=== PATIENT | female | born 1965 | race African-American/Black ===

== ENCOUNTER 2018-02-12 13:31 | Observation (INO) | payer BC ==
--- NOTE | 2018-02-12 13:38 | PDOC ---
History of Present Illness - General Chief Complaint: Chest Pain Stated Complaint: CHEST PAIN Time Seen by Provider: 02/12/18 13:37 History Source: Patient, EMS Exam Limitations: No Limitations - History of Present Illness Initial Comments: 02/12/18 13:54 CHIEF COMPLAINT: Chest pain HISTORY OF PRESENT ILLNESS: This is a 52-year-old female with a history of hypertension (on multiple agents, also with history of preeclampsia and "prediabetes" on metformin referred from urgent care with chest pain. The patient was in her usual state of health this morning. After getting out of the shower today and walking a short distance in her house, she developed sudden onset of left-sided upper back pain radiating to the chest. She reports feeling hot and sweaty at the time of pain onset. She denies nausea, shortness of breath , or any other symptoms. The pain seems to be worse with movement and with breathing, even if not breathing deeply. She took ASA 81 mg 3 and presented to urgent care. There she was given Toradol 60 mg without any relief of symptoms, and thus was referred to the ED for further evaluation. Vital signs on arrival are unremarkable. PCP: Demario orozco at [facility] Smoking: None Alcohol: Occasional Social history: Lives with partner. 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 Travel: [place] 1 month ago (4 hr flight) Surgeries: c/s x 1 REVIEW OF SYSTEMS: GENERAL/CONSTITUTIONAL: No fever or chills. No weakness. No weight change. HEAD, EYES, EARS, NOSE AND THROAT: No change in vision. No ear pain or discharge. No sore throat. CARDIOVASCULAR: See HPI. RESPIRATORY: No cough, wheezing, or shortness of breath. GASTROINTESTINAL: No nausea, vomiting, diarrhea or constipation. GENITOURINARY: No dysuria, frequency, or change in urination. Still menstruating. MUSCULOSKELETAL: No joint or muscle swelling or pain. No neck or back pain. SKIN: No rash or easy bruising. NEUROLOGIC: No headache, vertigo, loss of consciousness, or loss of sensation. PSYCHIATRIC: No depression or anxiety. ENDOCRINE: No increased thirst. No abnormal weight change. HEMATOLOGIC/LYMPHATIC: No anemia, easy bleeding, or history of blood clots. ALLERGIC/IMMUNOLOGIC: No hives or skin allergy. No latex allergy. PHYSICAL EXAM: GENERAL: The patient is awake, alert, and fully oriented, in no acute distress. HEAD: Normal with no signs of trauma. ENT: Pupils equal, round and reactive to light, extraocular movements intact, sclera anicteric, conjunctiva clear. Neck supple. LUNGS: Clear to auscultation bilaterally. Normal excursion. No respiratory distress or use of accessory muscles. Pain reproducible with twisting movement of upper torso and with deep breathing. CV: RRR, S1/S2, no MRG. Cap refill < 2 sec. ABDOMEN: Soft, non-distended, non-tender. EXTREMITIES: Normal range of motion. 1+ pitting LLE edema, patient states is chronic, trace RLE edema. NEUROLOGICAL: Normal speech, normal gait. CN II-XII grossly intact. PSYCH: Normal mood, normal affect. SKIN: Warm, dry, normal turgor, no rashes or lesions noted. 02/12/18 13:56 Past History - Past Medical History Allergies/Adverse Reactions: Allergies Allergy/AdvReac Type Severity Reaction Status Date / Time No Known Allergies Allergy Verified 02/12/18 13:42 Home Medications: Ambulatory Orders Diltiazem Cd [Cardizem Cd -] 300 mg PO DAILY 02/12/18 Losartan Potassium 100 mg PO DAILY 02/12/18 Spironolactone 25 mg PO DAILY 02/12/18 metFORMIN XR [Glucophage *Xr* -] 500 mg PO DAILY 02/12/18 Heart Score/ECG Review - History History: Moderately suspicious - Electrocardiogram EKG: Normal - Age Age: 45-65 - Risk Factors Risk Factors Heart Score: Yes Hx Hypertension, Yes Hx Diabetes, Yes Hx Obesity Based on the list above the patient has:: >/=3 risk factors or Hx atherosclerotic disease - Troponin Troponin: </= normal limit - Score Heart Score - Total: 4 ED Treatment Course - LABORATORY CBC & Chemistry Diagram: 02/12/18 13:39 02/12/18 13:39 Medical Decision Making - Medical Decision Making 02/12/18 13:59 A/P: 52-year-old female with hypertension and pre-diabetes presenting with sudden onset of upper back pain radiating to the chest. Pain is pleuritic in nature. 1. EKG: Normal sinus rhythm with T-wave inversions in lead III only, not present on prior EKG provided by PCP 2. Labs including CBC, CMP, PT/INR, troponin, d-dimer (patient is low-risk by Well's criteria) 3. Chest x-ray 4. Patient declines analgesia at this time, took ASA at home 02/12/18 15:11 CXR: Prominent heart and dann Trop neg D-dimer within normal limits Patient continues to have 8/10 pain Will CTA r/o dissection 02/12/18 17:49 CTA reviewed. The lower half of the aorta is partially obscured due to vascular pulsaiton artifact. No obvious dissection is seen at that level. The thoracic aorta is well-visualized and there is no dissection at that level. There are several curvilinear bands over the left atrium, which are likely artifactual in nature, less likely thrombus. Correlation with echocardiography as recommended. Patient reevaluated and pain is unchanged. Still 8/10. She again declines analgesia. We'll request observation to complete rule out AK. *DC/Admit/Observation/Transfer Diagnosis at time of Disposition: Chest pain Qualifiers: Chest pain type: unspecified Qualified Code(s): R07.9 - Chest pain, unspecified - Discharge Dispostion Condition at time of disposition: Guarded Decision to Admit order: Yes - Referrals Referrals: Marcie Castano MD [Primary Care Provider] - - Patient Instructions - Post Discharge Activity
[2018-02-12 13:39] VITALS: BMI 30.9
[2018-02-12 14:11] LABS: BASO % 2.3 % (0-2.0); EOS % 1.4 % (0-4.5); HEMATOCRIT 37.1 % (32.4-45.2); HEMOGLOBIN 12.7 GM/dL (10.7-15.3); LYMPH % 48.8 % (8-40); MCH 31.2 pg (25.7-33.7); MCHC 34.1 g/dl (32.0-36.0); MEAN CELL VOLUME 91.4 fl (80-96); MEAN PLT VOLUME 8.3 fl (7.5-11.1); MONO % 8.3 % (3.8-10.2); NEUT % 39.2 % (42.8-82.8); PLATELET COUNT 282 K/MM3 (134-434); RBC 4.06 M/mm3 (3.60-5.2); WHITE BLOOD COUNT 3.7 K/mm3 (4.0-10.0)
[2018-02-12 14:26] LABS: INR 1.15 (0.83-1.09)
[2018-02-12 14:51] LABS: ALBUMIN 4.3 g/dl (3.4-5.0); ALK PHOS 66 U/L (45-117); ANION GAP 7 MMOL/L (8-16); BILIRUBIN,TOTAL 0.4 mg/dL (0.2-1.0); BLOOD UREA NITROGEN 11 mg/dL (7-18); CALCIUM 9.3 mg/dL (8.5-10.1); CHLORIDE 108 mmol/L (98-107); CO2 25 mmol/L (21-32); CREATININE 0.9 mg/dL (0.55-1.3); GLUCOSE,RANDOM 109 mg/dL (74-106); POTASSIUM 4.2 mmol/L (3.5-5.1); SGOT/AST 16 U/L (15-37); SGPT/ALT 22 U/L (13-61); SODIUM 140 mmol/L (136-145)
[2018-02-12] MEDS ORDERED: ACETAMINOPHEN 325 MG TABLET (FP) PO PRN (18:59)
[2018-02-12] MEDS ORDERED: CYCLOBENZAPRINE HCL 5 MG TABLET PO PRN (19:05)
--- NOTE | 2018-02-12 19:09 | PN ---
Teaching Attending Note Name of Resident: Doron Ambrosio ATTENDING PHYSICIAN STATEMENT I saw and evaluated the patient. I reviewed the resident's note and discussed the case with the resident. I agree with the resident's findings and plan as documented with exceptions below. SUBJECTIVE: 52 yof with PMHx of HTN, PRe DM on metformin, Osteoarthritis was in her USOH till this AM, when after coming out of shower had sudden onset of left upper back pain, sharp radiating to the left arm and left upper chest, worse with left arm movements, especially elevation and deep breaths. Denies any arm or jaw pain, dypsnea, diaphoresis, fevers, chills, cough, or other concerns. Fairly active with no c/o exertional chest pain, dyspnea or anginal equivalent symptoms. Currently with intermittent pain with left arm elevation and deep breaths but comfortable. No twisting, pulling, neck pain. Prior h/o right low back pain when was told was related to sciatica 12 point ROS neg otherwise. OBJECTIVE: Vital Signs Period Temp Pulse Resp BP Sys/[place] Pulse Ox Last 24 Hr 98.0 F 74-75 20-20 142-142/84-94 97-99 Intake & Output 02/09/18 02/10/18 02/11/18 02/12/18 23:59 23:59 23:59 23:59 Weight 180 lb GENERAL: Awake, alert, and fully oriented, in no acute distress. HEAD: Normal with no signs of trauma. EYES: Pupils equal, round and reactive to light, extraocular movements intact, sclera anicteric, conjunctiva clear. No lid lag. EARS, NOSE, THROAT: Ears normal, nares patent, oropharynx clear without exudates. Moist mucous membranes. NECK: Normal range of motion, supple without lymphadenopathy, JVD, or masses. LUNGS: Breath sounds equal, clear to auscultation bilaterally. No wheezes, and no crackles. No accessory muscle use. HEART: S1S2 regular rate rhythm ABDOMEN: Soft, nontender, not distended, normoactive bowel sounds, no guarding, no rebound, no masses. MUSCULOSKELETAL: Normal range of motion at all joints. No bony deformities or tenderness. No CVA tenderness. Pain left scapular left arm and left upper chest wall area with left shoulder elevation above 90 degrees, no point tenderness over left shoulder region, no spinal tenderness, UPPER EXTREMITIES: 2+ pulses, warm, well-perfused. No cyanosis. No clubbing. No peripheral edema. LOWER EXTREMITIES: 2+ pulses, warm, well-perfused. No calf tenderness. No peripheral edema. NEUROLOGICAL: Cranial nerves II-XII intact. Normal speech. Normal gait. Power 5 /5, sensation intact and symmetric to touch bilaterally, PERRL, EOMI, facial symmetry, no pronator drift, toes down going, DTR Bilaterally symmetric PSYCHIATRIC: Cooperative. Good eye contact. Appropriate mood and affect. SKIN: Warm, dry, normal turgor, no rashes or lesions noted, normal capillary refill. Home Medications Medication Instructions Recorded Diltiazem Cd [Cardizem Cd -] 300 mg PO DAILY 02/12/18 Losartan Potassium 100 mg PO DAILY 02/12/18 Spironolactone 25 mg PO DAILY 02/12/18 metFORMIN XR [Glucophage *Xr* -] 500 mg PO DAILY 02/12/18 Active Medications Acetaminophen (Tylenol -) 650 mg PO Q4H PRN PRN Reason: PAIN LEVEL 6-10 Diltiazem HCl (Cardizem Cd -) 300 mg PO DAILY MATTHEW Insulin Aspart (Novolog Vial Sliding Scale -) 0 vial SQ ACHS MATTHEW; Protocol Losartan Potassium (Cozaar -) 100 mg PO DAILY MATTHEW Spironolactone (Aldactone -) 25 mg PO DAILY [facility] Laboratory Results - last 24 hr 02/12/18 02/12/18 02/12/18 13:39 13:39 14:00 WBC 3.7 L RBC 4.06 Hgb 12.7 Hct 37.1 MCV 91.4 MCH 31.2 MCHC 34.1 RDW 13.0 Plt Count 282 MPV 8.3 Absolute Neuts (auto) 1.5 Neutrophils % 39.2 L Lymphocytes % 48.8 H Monocytes % 8.3 Eosinophils % 1.4 Basophils % 2.3 H Nucleated RBC % 0 PT with INR 13.00 INR 1.15 H D-Dimer Sodium 140 Potassium 4.2 Chloride 108 H Carbon Dioxide 25 Anion Gap 7 L BUN 11 Creatinine 0.9 Creat Clearance w eGFR > 60 Random Glucose 109 H Calcium 9.3 Total Bilirubin 0.4 AST 16 ALT 22 Alkaline Phosphatase 66 Troponin I < 0.02 Total Protein 8.0 Albumin 4.3 Serum , Qual 02/12/18 02/12/18 14:00 15:08 WBC RBC Hgb Hct MCV MCH MCHC RDW Plt Count MPV Absolute Neuts (auto) Neutrophils % Lymphocytes % Monocytes % Eosinophils % Basophils % Nucleated RBC % PT with INR INR D-Dimer 429 Sodium Potassium Chloride Carbon Dioxide Anion Gap BUN Creatinine Creat Clearance w eGFR Random Glucose Calcium Total Bilirubin AST ALT Alkaline Phosphatase Troponin I Total Protein Albumin Serum , Qual Negative CTA results reviewed CXR results reviewed EKG NSR, T inversions in anterior leads and II, QS in V1V2 ASSESSMENT AND PLAN: 52 yof with left upper back/left chest wall pain radiating to left arm sharp -Left upper back/left chest wall pain radiating to left arm sharp sudden onset, musculoskeletal vs costochondritis vs C spine radiculopathy high on differential , r/o ACS though low suspicion, CTA chest neg for dissection -Abnormal area above left atrium ?artefact, r/o thrombus, clinically low suspicion -HTN -Pre-diabetes Plan: C-spine xray. Trial with low dose neurontin. flexeril prn. Tylenol prn. CHeck Mg/Phos. Monitor for new concerns. Check 2D echo Cardiology consult given EKG changes though non specific and pain currently exacerbated by movements and deep breaths that argues against ACS. CHeck A1c, hold metformin given contrast. ISS< diabetic diet Continue home anti-hypertensives DVTPPX low risk Dispo admit to obs tele d/c in 24 hours if work up unrevealing and no new concerns. Plan discussed with patient in detail, all questions answered. Total admit time 55 min.
--- NOTE | 2018-02-12 19:31 | HP ---
CHIEF COMPLAINT: chest/back pain PCP: n/a HISTORY OF PRESENT ILLNESS: Patient is a 52 yo F with a PMHx of HTN, osteoarthritis, Pre-DM, presented with sudden, 9/10, sharp, constant, Left upper back pain, radiating to the L arm and Left upper chest that started this morning while walking in her house. Pain is worsened with movement, L arm elevation and when taking deep breaths. Patient never experienced this type of pain before. She has never seen a personnel research scientist and has never had an echo. She denies diaphoresis, jaw pain, sob, nausea, vomiting, dizziness, trauma, recent exercising, cough, fevers, chills, recent illness, numbness, tingling, vision changes, edema. ER course was notable for: (1) EKG NSR, T inversions in anterior leads and II, QS in V1V2 (2) 1st trop negative (3) CTA with no definite evidence of dissection, partially obscured. Recent Travel: [place] 1 month ago. PAST MEDICAL HISTORY: per hpi PAST SURGICAL HISTORY: Social History: Smoking: denies Alcohol: occasional Drugs: denies Family History: Allergies No Known Allergies Allergy (Verified 02/12/18 13:42) HOME MEDICATIONS: Home Medications Medication Instructions Recorded Diltiazem Cd [Cardizem Cd -] 300 mg PO DAILY 02/12/18 Losartan Potassium 100 mg PO DAILY 02/12/18 Spironolactone 25 mg PO DAILY 02/12/18 metFORMIN XR [Glucophage *Xr* -] 500 mg PO DAILY 02/12/18 REVIEW OF SYSTEMS CONSTITUTIONAL: Absent: fever, chills, diaphoresis, generalized weakness, malaise, loss of appetite, weight change HEENT: Absent: rhinorrhea, nasal congestion, throat pain, throat swelling, difficulty swallowing, mouth swelling, ear pain, eye pain, visual changes CARDIOVASCULAR: chest pain Absent: syncope, palpitations, irregular heart rate, lightheadedness, peripheral edema RESPIRATORY: Absent: cough, shortness of breath, dyspnea with exertion, orthopnea, wheezing, stridor, hemoptysis GASTROINTESTINAL: Absent: abdominal pain, abdominal distension, nausea, vomiting, diarrhea, constipation, melena, hematochezia GENITOURINARY: Absent: dysuria, frequency, urgency, hesitancy, hematuria, flank pain, genital pain MUSCULOSKELETAL: back pain, neck pain, arthalgia Absent: myalgia NEUROLOGIC: Absent: headache, focal weakness or paresthesias, dizziness, unsteady gait, seizure, mental status changes, bladder or bowel incontinence PSYCHIATRIC: Absent: anxiety, depression PHYSICAL EXAMINATION Vital Signs - 24 hr 02/12/18 02/12/18 02/12/18 13:35 14:10 15:05 Temperature 98.0 F Pulse Rate 75 Pulse Rate [ 74 Radial] Respiratory 20 20 Rate Blood Pressure 142/94 Blood Pressure 142/84 [Left Arm] O2 Sat by Pulse 97 98 99 Oximetry (%) 02/12/18 18:00 Temperature Pulse Rate Pulse Rate [ Radial] Respiratory Rate Blood Pressure Blood Pressure [Left Arm] O2 Sat by Pulse 98 Oximetry (%) GENERAL: Awake, alert, and fully oriented, in no acute distress. HEAD: Normal with no signs of trauma. EYES: Pupils equal, round and reactive to light, extraocular movements intact EARS, NOSE, THROAT: oropharynx clear without exudates. Moist mucous membranes. NECK: Normal range of motion, supple without lymphadenopathy, JVD LUNGS: Breath sounds equal, clear to auscultation bilaterally. HEART: Regular rate and rhythm, normal S1 and S2 without murmur, rub or gallop. Chest: no reproducible pain on palpation. ABDOMEN: Soft, nontender, not distended, normoactive bowel sounds, no guarding, no rebound, no masses. MUSCULOSKELETAL: Normal range of motion at all joints. Pain with active range of motion with L arm. UPPER EXTREMITIES: L scapular pain and chest pain with shoulder elevation. No point tenderness. 2+ pulses, warm, well-perfused LOWER EXTREMITIES: 2+ pulses. No peripheral edema. NEUROLOGICAL: Cranial nerves II-XII intact. Normal speech. Normal gait. PSYCHIATRIC: Cooperative. Good eye contact. Appropriate mood and affect. Laboratory Results - last 24 hr 02/12/18 02/12/18 02/12/18 13:39 13:39 14:00 WBC 3.7 L RBC 4.06 Hgb 12.7 Hct 37.1 MCV 91.4 MCH 31.2 MCHC 34.1 RDW 13.0 Plt Count 282 MPV 8.3 Absolute Neuts (auto) 1.5 Neutrophils % 39.2 L Lymphocytes % 48.8 H Monocytes % 8.3 Eosinophils % 1.4 Basophils % 2.3 H Nucleated RBC % 0 PT with INR 13.00 INR 1.15 H D-Dimer Sodium 140 Potassium 4.2 Chloride 108 H Carbon Dioxide 25 Anion Gap 7 L BUN 11 Creatinine 0.9 Creat Clearance w eGFR > 60 Random Glucose 109 H Calcium 9.3 Total Bilirubin 0.4 AST 16 ALT 22 Alkaline Phosphatase 66 Troponin I < 0.02 Total Protein 8.0 Albumin 4.3 Serum , Qual 02/12/18 02/12/18 14:00 15:08 WBC RBC Hgb Hct MCV MCH MCHC RDW Plt Count MPV Absolute Neuts (auto) Neutrophils % Lymphocytes % Monocytes % Eosinophils % Basophils % Nucleated RBC % PT with INR INR D-Dimer 429 Sodium Potassium Chloride Carbon Dioxide Anion Gap BUN Creatinine Creat Clearance w eGFR Random Glucose Calcium Total Bilirubin AST ALT Alkaline Phosphatase Troponin I Total Protein Albumin Serum , Qual Negative ASSESSMENT/PLAN: Patient is a 52 yo F with a PMHx of HTN, osteoarthritis, presented with L upper back pain, radiating to the L chest and arm. #L Upper back pain/L sided Chest pain. -musculoskeletel vs costochondritis vs c spine radiculopathy -r/o ACS -1st trop neg, fu repeat -FU mag phos -tele -echo -cardiology consult, EKG changes. -EKG NSR, T inversions in anterior leads and II, QS in V1V2 -FU c-spine x ray, start Neurontin. Flexiril prn. -CTA with no definite evidence of dissection, partially obscured. #HTN -cont. home meds -cardizem, losartan, spironolactone #Pre-DM -hga1c -hold metformin -sliding scale #FEN -no fluids -monitor -sodium restricted #dvt ppx -SCDs Dispo: monitor overnight Visit type - Emergency Visit Emergency Visit: Yes Care time: The patient presented to the Emergency Department on the above date and was hospitalized for further evaluation of their emergent condition. - New Patient This patient is new to me today: Yes Date on this admission: 02/12/18 - Critical Care Critical Care patient: No Hospitalist Screening - Colonoscopy Questionnaire Colonoscopy Questionnaire: Colonoscopy Questionnaire - Patient: 50 - 75 years old and never had a screening colonoscopy: Unknown History of colon or rectal polyps, or CA: Unknown History of IBD, Crohn's disease or UC: Unknown History of abdominal radiation therapy as a child: Unknown - Relative: 1 with colon or rectal CA, or polyps at age 60 or younger: Unknown Colon or rectal CA diagnosed at age 45 or younger: Unknown Multiple relatives with colon or rectal CA: Unknown - Outcome: Screening Result: Negative Screen
[2018-02-12 20:57] LABS: MAGNESIUM 2.3 mg/dL (1.8-2.4); PHOSPHOROUS 3.1 mg/dL (2.5-4.9)
[2018-02-12 20:58] LABS: CHOLESTEROL 208 mg/dL (50-200); HDL CHOLESTEROL 40 mg/dL (40-60); TRIGLYCERIDES 204 mg/dL (35-160)
[2018-02-12] MEDS ORDERED: GABAPENTIN 100 MG CAPSULE (FP) ONE (21:36)
[2018-02-12] MEDS: GABAPENTIN 100 MG CAPSULE (FP) PO SCH (21:48)
[2018-02-12] MEDS: INSULIN SLIDING SCALE (NOVOLOG) 1 VIAL SQ SCH (21:49)
[2018-02-13] MEDS: INSULIN SLIDING SCALE (NOVOLOG) 1 VIAL SQ SCH ×2 (06:07→12:30)
[2018-02-13] MEDS ORDERED: CYCLOBENZAPRINE HCL 10 MG TABLET (FP) PO PRN (06:25)
[2018-02-13 07:27] LABS: BASO % 2.2 % (0-2.0); EOS % 2.8 % (0-4.5); HEMATOCRIT 34.4 % (32.4-45.2); HEMOGLOBIN 11.8 GM/dL (10.7-15.3); MCHC 34.2 g/dl (32.0-36.0); MEAN CELL VOLUME 90.7 fl (80-96); MEAN PLT VOLUME 8.4 fl (7.5-11.1); MONO % 8.7 % (3.8-10.2); NEUT % 38.3 % (42.8-82.8); PLATELET COUNT 264 K/MM3 (134-434); RDW 13.1 % (11.6-15.6); WHITE BLOOD COUNT 4.1 K/mm3 (4.0-10.0)
[2018-02-13 07:52] LABS: INR 1.15 (0.83-1.09)
[2018-02-13 08:05] LABS: CALCIUM 8.7 mg/dL (8.5-10.1); CHLORIDE 106 mmol/L (98-107); POTASSIUM 4.2 mmol/L (3.5-5.1); SODIUM 139 mmol/L (136-145)
[2018-02-13 08:09] LABS: ALBUMIN 3.8 g/dl (3.4-5.0); ALK PHOS 62 U/L (45-117); ANION GAP 7 MMOL/L (8-16); BILIRUBIN,TOTAL 0.5 mg/dL (0.2-1.0); BLOOD UREA NITROGEN 17 mg/dL (7-18); CO2 26 mmol/L (21-32); GLUCOSE,RANDOM 106 mg/dL (74-106); SGOT/AST 17 U/L (15-37); SGPT/ALT 20 U/L (13-61); TOT PROT 7.2 g/dl (6.4-8.2)
--- NOTE | 2018-02-13 09:12 | EKG ---
Test Reason : Blood Pressure : / mmHG Vent. Rate : 069 BPM Atrial Rate : 069 BPM P-R Int : 182 ms QRS Dur : 090 ms QT Int : 354 ms P-R-T Axes : 052 001 006 degrees QTc Int : 379 ms NORMAL SINUS RHYTHM NONSPECIFIC T WAVE ABNORMALITY ABNORMAL ECG WHEN COMPARED WITH ECG OF 12-FEB-2018 20:44, NO SIGNIFICANT CHANGE WAS FOUND Confirmed by JOHN JOHNSON MD ([id number]) on 02/13/2018 9:11:54 AM Referred By: Confirmed By:JOHN JOHNSON MD
--- NOTE | 2018-02-13 09:33 | EKG ---
Test Reason : Blood Pressure : / mmHG Vent. Rate : 074 BPM Atrial Rate : 074 BPM P-R Int : 180 ms QRS Dur : 086 ms QT Int : 344 ms P-R-T Axes : 048 -16 003 degrees QTc Int : 381 ms NORMAL SINUS RHYTHM WITH SINUS ARRHYTHMIA MODERATE VOLTAGE CRITERIA FOR LVH, MAY BE NORMAL VARIANT POOR R WAVE PROGRESSION NONSPECIFIC T WAVE ABNORMALITY ABNORMAL ECG NO PREVIOUS ECGS AVAILABLE Confirmed by ELIZABETH KATZ, JOHN ([id number]) on 02/13/2018 9:32:51 AM Referred By: Confirmed By:JOHN JOHNSON MD
[2018-02-13] MEDS ORDERED: PT OWN MED DRAWER 7, Y5N ONE (09:34)
[2018-02-13] MEDS ORDERED: SPIRONOLACTONE 25 MG TABLET (FP) PO SCH (10:00)
[2018-02-13] MEDS: LOSARTAN POTASSIUM 50 MG TABLET (FP) PO SCH ×2 (10:36→10:49)
[2018-02-13] MEDS: GABAPENTIN 100 MG CAPSULE (FP) PO SCH (10:36)
--- NOTE | 2018-02-13 10:50 | ECHO ---
Name: GUY TORRES Exam:Adult Echocardiogram Study Date: 02/13/2018 08:39 AM Age: 52 yrs Reason For Study: chest pain r/o?thrombi,on CTA Height: 64 in Weight: 180 lb BSA: 1.9 m2 MMode/2D Measurements & Calculations RVDd: 2.9 cm Ao root diam: 3.4 cm IVSd: 0.65 cm LA dimension: 3.5 cm LVIDd: 5.0 cm ACS: 1.8 cm LVIDs: 2.8 cm LVPWd: 0.69 cm IVSs: 1.2 cm LVPWs: 1.1 cm EDV(Teich): 115.7 ml ESV(Teich): 29.7 ml Doppler Measurements & Calculations MV E max [place]: 78.5 cm/sec Ao V2 max: 138.5 cm/sec MV A max [place]: 75.9 cm/sec Ao max P.7 mmHg MV E/A: 1.0 Ao V2 mean: 90.2 cm/sec Ao mean P.9 mmHg Ao V2 VTI: 24.5 cm TR max [place]: 170.5 cm/sec Med Peak E' [place]: 6.0 cm/sec TR max P.7 mmHg Med E/e': 13.0 Lat Peak E' [place]: 4.8 cm/sec Lat E/e': 16.3 Left Ventricle Ejection Fraction = 50-55%. Left ventricular systolic function is normal. Right Ventricle The right ventricle is normal in size and function. Atria Normal left and right atrial size and function. Mitral Valve There is mild mitral valve thickening. There is no mitral valve stenosis. There is trace to mild mitr al regurgitation. Tricuspid Valve The tricuspid valve is normal in structure and function. There is mild tricuspid regurgitation. Right ventricular systolic pressure is normal. Aortic Valve The aortic valve opens well. No hemodynamically significant valvular aortic stenosis. No aortic regur gitation is present. Pulmonic Valve The pulmonic valve is not well seen, but is grossly normal. There is no pulmonic valvular stenosis. T here is no pulmonic valvular regurgitation. Great Vessels The aortic root is normal size. Pericardium/Pleura There is no pericardial effusion. Interpretation Summary Ejection Fraction = 50-55%. Left ventricular systolic function is normal. The right ventricle is normal in size and function. There is mild mitral valve thickening. There is trace to mild mitral regurgitation. There is mild tricuspid regurgitation. Right ventricular systolic pressure is normal. No hemodynamically significant valvular aortic stenosis. The aortic root is normal size. There is no pericardial effusion. MD Edson La 02/13/2018 10:50 AM
--- NOTE | 2018-02-13 11:13 | CON.CARD ---
Cardiology Consult (text) - Consultation Consultation Note: cc: back pain, chest pain hpi: 52 f hx htn, hld, borderline dm here with back pain, chest pain. Feeling well until yesterday when was at rest and noticed sharp "popping" pain in left upper back that radiated around her side to her left chest, left shoulder. No sob, palps, dizzy loc pnd orthopnea le edema. No anginal sxs. No hx hrt dz. Back pain worse with deep breaths. Improved today. pmh: per hpi psh: social: no tob fam: no premature cad, scd ros: per hpi; no nvd cough bess vision changes gib hematuria dysuria fever meds: Home Medications Medication Instructions Recorded Diltiazem Cd [Cardizem Cd -] 300 mg PO DAILY 02/12/18 Losartan Potassium 100 mg PO DAILY 02/12/18 Spironolactone 25 mg PO DAILY 02/12/18 metFORMIN XR [Glucophage *Xr* -] 500 mg PO DAILY 02/12/18 pe: Vital Signs Period Temp Pulse Resp BP Sys/[place] Pulse Ox Last 24 Hr 98 F-98.5 F 63-75 18-20 123-142/72-94 96-99 nad no jvd rrr s1 s2 no mrg cta bl nl eff aao3 no le e/c/c abd nt nd posbs laya jaundice diaphoresis pos dp pt no carotid bruits Laboratory Last Values WBC 4.1 K/mm3 (4.0-10.0) 02/13/18 06:33 RBC 3.80 M/mm3 (3.60-5.2) 02/13/18 06:33 Hgb 11.8 GM/dL (10.7-15.3) 02/13/18 06:33 Hct 34.4 % (32.4-45.2) 02/13/18 06:33 MCV 90.7 fl (80-96) 02/13/18 06:33 MCH 31.0 pg (25.7-33.7) 02/13/18 06:33 MCHC 34.2 g/dl (32.0-36.0) 02/13/18 06:33 RDW 13.1 % (11.6-15.6) 02/13/18 06:33 Plt Count 264 K/MM3 (134-434) 02/13/18 06:33 MPV 8.4 fl (7.5-11.1) 02/13/18 06:33 Absolute Neuts (auto) 1.5 K/mm3 (1.5-8.0) 02/13/18 06:33 Neutrophils % 38.3 % (42.8-82.8) L 02/13/18 06:33 Lymphocytes % 48.0 % (8-40) H 02/13/18 06:33 Monocytes % 8.7 % (3.8-10.2) 02/13/18 06:33 Eosinophils % 2.8 % (0-4.5) D 02/13/18 06:33 Basophils % 2.2 % (0-2.0) H 02/13/18 06:33 Nucleated RBC % 0 % (0-0) 02/13/18 06:33 PT with INR 13.00 SEC (9.7-13.0) 02/13/18 06:33 INR 1.15 (0.83-1.09) H 02/13/18 06:33 D-Dimer 429 ng/ml (0-500) 02/12/18 14:00 Sodium 139 mmol/L (136-145) 02/13/18 06:33 Potassium 4.2 mmol/L (3.5-5.1) 02/13/18 06:33 Chloride 106 mmol/L (98-107) 02/13/18 06:33 Carbon Dioxide 26 mmol/L (21-32) 02/13/18 06:33 Anion Gap 7 MMOL/L (8-16) L 02/13/18 06:33 BUN 17 mg/dL (7-18) 02/13/18 06:33 Creatinine 1.0 mg/dL (0.55-1.3) 02/13/18 06:33 Creat Clearance w eGFR 58.22 (>60) 02/13/18 06:33 POC Glucometer 106 UNITS (80-120) 02/13/18 06:04 Random Glucose 106 mg/dL (74-106) 02/13/18 06:33 Hemoglobin A1c % 6.0 % (4.2-6.3) 02/12/18 20:13 Calcium 8.7 mg/dL (8.5-10.1) 02/13/18 06:33 Phosphorus 3.1 mg/dL (2.5-4.9) 02/12/18 20:13 Magnesium 2.3 mg/dL (1.8-2.4) 02/12/18 20:13 Total Bilirubin 0.5 mg/dL (0.2-1.0) 02/13/18 06:33 AST 17 U/L (15-37) 02/13/18 06:33 ALT 20 U/L (13-61) 02/13/18 06:33 Alkaline Phosphatase 62 U/L (45-117) 02/13/18 06:33 Troponin I < 0.02 ng/ml (0.00-0.05) 02/12/18 20:13 Total Protein 7.2 g/dl (6.4-8.2) 02/13/18 06:33 Albumin 3.8 g/dl (3.4-5.0) 02/13/18 06:33 Triglycerides 204 mg/dL (35-160) H 02/12/18 20:13 Cholesterol 208 mg/dL (50-200) H 02/12/18 20:13 Total LDL Cholesterol 152 mg/dL (5-100) H 02/12/18 20:13 HDL Cholesterol 40 mg/dL (40-60) 02/12/18 20:13 Serum , Qual Negative 02/12/18 15:08 tele: sr ecg: sr, nl intervals, no ischemic changes echo 01/2018: nl lv/rv, nl rvsp, mild tr cta chest: no dissection, no chf a/p: 52 f hx htn, hld, borderline dm here with back pain, chest pain. cp, back pain: -seems msk, not cardiac -ce's negative, ecg, tele, echo unremarkable -sxs improving -no further inpt cardiac testing needed at this time, pt can f/u with cardio as outpt htn: -cont home meds hld: -cont statin
[2018-02-13 13:57] VITALS: BP 127/76; PULSE 76; TEMP 98.4
--- NOTE | 2018-02-13 13:58 | PN ---
Teaching Attending Note Name of Resident: Masha Garcia ATTENDING PHYSICIAN STATEMENT I saw and evaluated the patient. I reviewed the resident's note and discussed the case with the resident. I agree with the resident's findings and plan as documented with exceptions below SUBJECTIVE: Patient seen and examined, left upper back symptoms markedly improved. Able to move arm better. Eager to go home. OBJECTIVE: Vital Signs Period Temp Pulse Resp BP Sys/[place] Pulse Ox Last 24 Hr 98 F-98.5 F 63-75 18-20 123-142/72-90 96-99 Intake & Output 02/10/18 02/11/18 02/12/18 02/13/18 23:59 23:59 23:59 23:59 Weight 180 lb 180 lb General: sitting in wheelchair in no acute distress Musculoskeletal: no spinal tenderness, no tenderness over left scapular/chest wall area, ROM at left arm markedly improved, able to elevate above 90 degrees with no pain or limitation Chest: CTAB, no rales or wheezing Extremities: no edema, pulses present bilaterally Home Medications Medication Instructions Recorded Diltiazem Cd [Cardizem Cd -] 300 mg PO DAILY 02/12/18 Losartan Potassium 100 mg PO DAILY 02/12/18 Spironolactone 25 mg PO DAILY 02/12/18 metFORMIN XR [Glucophage *Xr* -] 500 mg PO DAILY 02/12/18 Active Medications Acetaminophen (Tylenol -) 650 mg PO Q4H PRN PRN Reason: PAIN LEVEL 6-10 Atorvastatin Calcium (Lipitor -) 20 mg PO [facility] Cyclobenzaprine HCl (Flexeril -) 5 mg PO BID PRN PRN Reason: BACK PAIN Diltiazem HCl (Cardizem Cd -) 300 mg PO DAILY [facility] Last Admin: 02/13/18 13:20 Dose: 300 mg Gabapentin (Neurontin -) 100 mg PO BID [facility] Last Admin: 02/13/18 10:36 Dose: 100 mg Insulin Aspart (Novolog Vial Sliding Scale -) 1 vial SQ [facility]; Protocol Last Admin: 02/13/18 12:30 Dose: Not Given Losartan Potassium (Cozaar -) 100 mg PO DAILY [facility] Last Admin: 02/13/18 10:49 Dose: Not Given Spironolactone (Aldactone -) 25 mg PO DAILY [facility] Last Admin: 02/13/18 10:36 Dose: 25 mg Laboratory Results - last 24 hr 02/12/18 02/12/18 02/12/18 13:39 13:39 14:00 WBC 3.7 L RBC 4.06 Hgb 12.7 Hct 37.1 MCV 91.4 MCH 31.2 MCHC 34.1 RDW 13.0 Plt Count 282 MPV 8.3 Absolute Neuts (auto) 1.5 Neutrophils % 39.2 L Lymphocytes % 48.8 H Monocytes % 8.3 Eosinophils % 1.4 Basophils % 2.3 H Nucleated RBC % 0 PT with INR 13.00 INR 1.15 H D-Dimer Sodium 140 Potassium 4.2 Chloride 108 H Carbon Dioxide 25 Anion Gap 7 L BUN 11 Creatinine 0.9 Creat Clearance w eGFR > 60 POC Glucometer Random Glucose 109 H Hemoglobin A1c % Calcium 9.3 Phosphorus Magnesium Total Bilirubin 0.4 AST 16 ALT 22 Alkaline Phosphatase 66 Troponin I < 0.02 Total Protein 8.0 Albumin 4.3 Triglycerides Cholesterol Total LDL Cholesterol HDL Cholesterol Serum , Qual 02/12/18 02/12/18 02/12/18 14:00 15:08 20:13 WBC RBC Hgb Hct MCV MCH MCHC RDW Plt Count MPV Absolute Neuts (auto) Neutrophils % Lymphocytes % Monocytes % Eosinophils % Basophils % Nucleated RBC % PT with INR INR D-Dimer 429 Sodium Potassium Chloride Carbon Dioxide Anion Gap BUN Creatinine Creat Clearance w eGFR POC Glucometer Random Glucose Hemoglobin A1c % Calcium Phosphorus Magnesium Total Bilirubin AST ALT Alkaline Phosphatase Troponin I < 0.02 Total Protein Albumin Triglycerides Cholesterol Total LDL Cholesterol HDL Cholesterol Serum , Qual Negative 02/12/18 02/12/18 02/12/18 20:13 20:13 20:13 WBC RBC Hgb Hct MCV MCH MCHC RDW Plt Count MPV Absolute Neuts (auto) Neutrophils % Lymphocytes % Monocytes % Eosinophils % Basophils % Nucleated RBC % PT with INR INR D-Dimer Sodium Potassium Chloride Carbon Dioxide Anion Gap BUN Creatinine Creat Clearance w eGFR POC Glucometer Random Glucose Hemoglobin A1c % 6.0 Calcium Phosphorus 3.1 Magnesium 2.3 Total Bilirubin AST ALT Alkaline Phosphatase Troponin I Total Protein Albumin Triglycerides 204 H Cholesterol 208 H Total LDL Cholesterol 152 H HDL Cholesterol 40 Serum , Qual 02/12/18 02/13/18 02/13/18 21:42 06:04 06:33 WBC 4.1 RBC 3.80 Hgb 11.8 Hct 34.4 MCV 90.7 MCH 31.0 MCHC 34.2 RDW 13.1 Plt Count 264 MPV 8.4 Absolute Neuts (auto) 1.5 Neutrophils % 38.3 L Lymphocytes % 48.0 H Monocytes % 8.7 Eosinophils % 2.8 D Basophils % 2.2 H Nucleated RBC % 0 PT with INR INR D-Dimer Sodium Potassium Chloride Carbon Dioxide Anion Gap BUN Creatinine Creat Clearance w eGFR POC Glucometer 145.58711 106 Random Glucose Hemoglobin A1c % Calcium Phosphorus Magnesium Total Bilirubin AST ALT Alkaline Phosphatase Troponin I Total Protein Albumin Triglycerides Cholesterol Total LDL Cholesterol HDL Cholesterol Serum , Qual 02/13/18 02/13/18 02/13/18 06:33 06:33 12:28 WBC RBC Hgb Hct MCV MCH MCHC RDW Plt Count MPV Absolute Neuts (auto) Neutrophils % Lymphocytes % Monocytes % Eosinophils % Basophils % Nucleated RBC % PT with INR 13.00 INR 1.15 H D-Dimer Sodium 139 Potassium 4.2 Chloride 106 Carbon Dioxide 26 Anion Gap 7 L BUN 17 Creatinine 1.0 Creat Clearance w eGFR 58.22 POC Glucometer 138 Random Glucose 106 Hemoglobin A1c % Calcium 8.7 Phosphorus Magnesium Total Bilirubin 0.5 AST 17 ALT 20 Alkaline Phosphatase 62 Troponin I Total Protein 7.2 Albumin 3.8 Triglycerides Cholesterol Total LDL Cholesterol HDL Cholesterol Serum , Qual 2D echo results noted C-spine xray results noted - degenerative disease ASSESSMENT AND PLAN: 52 yof with left upper back/left chest wall pain radiating to left arm sharp -Left upper back/left chest wall pain radiating to left arm sharp sudden onset, likely Cervical radiculopathy -Abnormal area above left atrium likely artefact, normal 2D echo -Non specific T changes on EKG, unchanged -HTN -Pre-diabetes Plan: C-spine xray noted. Markedly improved. Continue neurontin. Outpatient orthopedic spine follow up if recurrence or concerns. 2D echo non concerning Cardiolgy input appreciated. A1c 6. Hold metformin for 48 hours. Continue home anti-hypertensives DVTPPX low risk Dispo d/c home with outpatient PCP and ortho spine follow up. Plan discussed with patient in detail, all questions answered. Patient relays understanding and in agreement with the plan.
--- NOTE | 2018-02-13 15:12 | DS ---
Physical Exam: SUBJECTIVE: Patient seen and examined at bedside this morning. She reports improvement of her pain and could move her arms more now. OBJECTIVE: Vital Signs Period Temp Pulse Resp BP Sys/[place] Pulse Ox Last 24 Hr 98 F-98.5 F 63-76 18-20 123-135/72-90 96-98 PHYSICAL EXAM GENERAL: The patient is awake, alert, and fully oriented, in no acute distress. HEAD: Normal with no signs of trauma. EYES: PERRLA, extraocular movements intact, sclera anicteric, conjunctiva clear. ENT: Ears normal, nares patent, oropharynx clear without exudates, moist mucous membranes. NECK: Trachea midline, full range of motion, supple. LUNGS: Breath sounds equal, clear to auscultation bilaterally. HEART: Regular rate and rhythm, S1, S2 without murmur, rub or gallop. CHEST: No tenderness on palpation. ABDOMEN: Soft, nontender, nondistended, normoactive bowel sounds. NEUROLOGICAL: Cranial nerves II through XII grossly intact. Normal speech, gait not observed. PSYCH: Normal mood, normal affect. SKIN: Warm, dry, normal turgor, no rashes or lesions noted. LABS Laboratory Results - last 24 hr 02/12/18 02/12/18 02/12/18 15:08 20:13 20:13 WBC RBC Hgb Hct MCV MCH MCHC RDW Plt Count MPV Absolute Neuts (auto) Neutrophils % Lymphocytes % Monocytes % Eosinophils % Basophils % Nucleated RBC % PT with INR INR Sodium Potassium Chloride Carbon Dioxide Anion Gap BUN Creatinine Creat Clearance w eGFR POC Glucometer Random Glucose Hemoglobin A1c % Calcium Phosphorus 3.1 Magnesium 2.3 Total Bilirubin AST ALT Alkaline Phosphatase Troponin I < 0.02 Total Protein Albumin Triglycerides Cholesterol Total LDL Cholesterol HDL Cholesterol Serum , Qual Negative 02/12/18 02/12/18 02/12/18 20:13 20:13 21:42 WBC RBC Hgb Hct MCV MCH MCHC RDW Plt Count MPV Absolute Neuts (auto) Neutrophils % Lymphocytes % Monocytes % Eosinophils % Basophils % Nucleated RBC % PT with INR INR Sodium Potassium Chloride Carbon Dioxide Anion Gap BUN Creatinine Creat Clearance w eGFR POC Glucometer 145.99853 Random Glucose Hemoglobin A1c % 6.0 Calcium Phosphorus Magnesium Total Bilirubin AST ALT Alkaline Phosphatase Troponin I Total Protein Albumin Triglycerides 204 H Cholesterol 208 H Total LDL Cholesterol 152 H HDL Cholesterol 40 Serum , Qual 02/13/18 02/13/18 02/13/18 06:04 06:33 06:33 WBC 4.1 RBC 3.80 Hgb 11.8 Hct 34.4 MCV 90.7 MCH 31.0 MCHC 34.2 RDW 13.1 Plt Count 264 MPV 8.4 Absolute Neuts (auto) 1.5 Neutrophils % 38.3 L Lymphocytes % 48.0 H Monocytes % 8.7 Eosinophils % 2.8 D Basophils % 2.2 H Nucleated RBC % 0 PT with INR 13.00 INR 1.15 H Sodium Potassium Chloride Carbon Dioxide Anion Gap BUN Creatinine Creat Clearance w eGFR POC Glucometer 106 Random Glucose Hemoglobin A1c % Calcium Phosphorus Magnesium Total Bilirubin AST ALT Alkaline Phosphatase Troponin I Total Protein Albumin Triglycerides Cholesterol Total LDL Cholesterol HDL Cholesterol Serum , Qual 02/13/18 02/13/18 06:33 12:28 WBC RBC Hgb Hct MCV MCH MCHC RDW Plt Count MPV Absolute Neuts (auto) Neutrophils % Lymphocytes % Monocytes % Eosinophils % Basophils % Nucleated RBC % PT with INR INR Sodium 139 Potassium 4.2 Chloride 106 Carbon Dioxide 26 Anion Gap 7 L BUN 17 Creatinine 1.0 Creat Clearance w eGFR 58.22 POC Glucometer 138 Random Glucose 106 Hemoglobin A1c % Calcium 8.7 Phosphorus Magnesium Total Bilirubin 0.5 AST 17 ALT 20 Alkaline Phosphatase 62 Troponin I Total Protein 7.2 Albumin 3.8 Triglycerides Cholesterol Total LDL Cholesterol HDL Cholesterol Serum , Qual Imaging: Echo - EF 50-55%. Left ventricular systolic function is normal. The right ventricle is normal in size and function. There is mild mitral valve thickening. There is trace to mild mitral regurgitation. There is mild tricuspid regurgitation. Right ventricular systolic pressure is normal. No hemodynamically significant valvular aortic stenosis. The aortic root is normal size. There is no pericardial effusion. Cervical spine X-ray - Degenerative changes. Loss of lordosis. Chest CTA No definite CT evidence of aortic dissection. The lower half of the ascending aorta is partially obscured due to vascular pulsation artifact. Several curvilinear bands are seen projecting over the left atrium which are probably artefactual in nature, less likely representing thrombus. Mild bibasilar discoid atelectasis. 0.4cm left lower lobe and 0.3cm right lower lobe noncalcified pulmonary nodules. Chest xray Prominent knob and heart. No acute chest pathology. EKG - NSR, T inversions in anterior leads and II, QS in V1V2 HOSPITAL COURSE: Date of Admission:02/12/18 Date of Discharge: 02/13/18 Patient is a 52 yo F with a PMHx of HTN, osteoarthritis, Pre-DM, presented with sudden, 9/10, sharp, constant, Left upper back pain, radiating to the L arm and Left upper chest that started this morning while walking in her house. Pain is worsened with movement, L arm elevation and when taking deep breaths. Patient never experienced this type of pain before. She has never seen a automobile accessories salesperson and has never had an echo. She denies diaphoresis, jaw pain, sob, nausea, vomiting, dizziness, trauma, recent exercising, cough, fevers, chills, recent illness, numbness, tingling, vision changes, aidan Patient was admitted to rule out ACS. Echo, Chest CTA, CXR, and cervical spine X -ray were done. Cardiology consulted. Cardiac enzymes were negative. Patient was given Gabapentin and reported relief of pain. She was also noted to have elevated cholesterol and was started on Atorvastatin 20mg. Patient was discharged stable with instructions to follow with Ortho for her C-spine x-ray findings of degenerative disease and with cardiology for a stress test to be done as outpatient. She was also advised to follow-up with PCP for her chest CT findings of pulmonary nodules as well as further management of her cholesterol. Minutes to complete discharge: 40 Discharge Summary Reason For Visit: CHEST PAIN Current Active Problems Chest pain (Acute) Condition: Improved - Instructions Diet, Activity, Other Instructions: You were admitted because you had sudden severe left upper back and arm pain. You had several tests done to make sure there's nothing emergent that needs to be addressed. You had EKGs, chest CT scan with contrast, 2D-echo, cervical spinal Xray, and some blood tests. You were found to have some degenerative changes on your cervical spine xray, which may have caused your nerves to be impinged and cause the back and arm pain. You were given a new medication, Gabapentin, which you reported caused relief of the pain. You can continue this medication at home. Please note that the medication gabapentin can make you sleepy or dizzy. If you notice these symptoms, please call your doctor to adjust dosage. Advise to avoid driving, operating heavy machinery atleast for a few days while the medication kicks in. IF back symptoms recur or persist, you are advised to follow up with a spine doctor. Please discuss with your doctor in this regard. Can see a neurosurgeon or orthopedic spine for the same. You were also found to have elevated cholesterol on your blood. You were started on a new medication, Atorvastatin 20 mg. You will continue taking this medication at home which you will take once every night because this causes drowsiness. If you notice any new muscle aches or pain, new belly pain, jaundice or new concerns on this medication, please stop the medication and call your doctor. Please follow-up with your primary care doctor in 1 week for further management of the cholesterol. You received dye for your CT study. Please do not take your metformin for 48 hours on discharge, then resume on Friday if with no concerns. In the interim, advise blood sugar monitoring 2-3 times daily and notify your doctor if < 75 or persistently > 200 noted. You were also found with lung nodules and will need follow up CT chest in 3 months with your doctor. Continue your other medications as prescribed. Follow-up with your PCP in 1 week. Call 911 or go to the ED for any worsening chest pain, fevers, chills, shortness of breath or any new concerns noted. Referrals: Marcie Castano MD [Primary Care Provider] - Disposition: HOME - Home Medications Comprehensive Discharge Medication List: Ambulatory Orders Diltiazem Cd [Cardizem Cd -] 300 mg PO DAILY 02/12/18 Losartan Potassium 100 mg PO DAILY 02/12/18 Spironolactone 25 mg PO DAILY 02/12/18 Atorvastatin Ca [Lipitor] 20 mg PO HS #30 tablet 02/13/18 Gabapentin [Neurontin -] 100 mg PO BID #30 capsule 02/13/18 This patient is new to me today: Yes Date on this admission: 02/13/18 Emergency Visit: Yes ED Registration Date: 02/12/18 Care time: The patient presented to the Emergency Department on the above date and was hospitalized for further evaluation of their emergent condition. Critical Care patient: No - Discharge Referral Referred to [facility] Med [facility] No
[2018-02-13] MEDS ORDERED: ATORVASTATIN CA 20 MG TABLET (FP) PO SCH (22:00)
== END 2018-02-13 17:15 | disposition home or self-care (01) ==
LOC: JER 13:31 → JERBED 19:40 → J4W 02-13 00:59
PROVIDERS: ADMIT Hospitalist; ATTEND Hospitalist
DX: I10 Essential (primary) hypertension (principal); R73.03 Prediabetes; M19.90 Unspecified osteoarthritis, unspecified site; Z79.84 Long term (current) use of oral hypoglycemic drugs
CPT/HCPCS: 36415; 71045-TC-FY; 71275-TC; 72050-TC-FY; 80053; 80061; 82962; 83036; 83721; 83735; 84100; 84484; 84703; 85025; 85379; 85610; 93005; 93010; 93306-TC; 99285-25; G0378

== ENCOUNTER 2018-10-02 14:46 | Inpatient (IN) | payer BC ==
--- NOTE | 2018-10-02 15:54 | PDOC ---
History of Present Illness - General History Source: Patient Exam Limitations: No Limitations - History of Present Illness Initial Comments: 10/02/18 15:45 53 y/o female with PMH of HTN and prediabetes presents to the ED with complaints of left leg and arm weakness that started over 24 hours ago. Patient states that at around 3pm yesterday she was at work and felt that her leg felt heavy. She tried to shake it off and it still felt "off". in addition her left arm also felt heavy. She got home from work-took her pressure and it was a tad high (150/83), she had a cup of tea and went to bed. She woke up this morning and still had the same complaints. She denies any changes in speech however still feels that her gait is not normal as she feels like she almost has to drag her foot. This has never happened to her before-. of note, she did recently travel and returned back from [place] on Friday. She denies any chest pains, shortness of breath, nausea/vomiting . she feels that she just doesn't feel "right". She took her pressures this morning and they wee normal (120's over 80s) this morning. Timing/Duration: 24 hours Associated Symptoms: reports: weakness (left lower extremity ). denies: chest pain, nausea/vomiting <Malaika Flores - Last Filed: 10/02/18 18:39> <Demetrice Carlin - Last Filed: 10/02/18 18:53> - General Chief Complaint: Weakness Stated Complaint: LEG PAIN Time Seen by Provider: 10/02/18 15:06 NIH Stroke Scale - Last Known Well Date/Time & Onset Date Last Known Well: 10/01/18 Time Last Known Well: 16:00 - Initial Evaluation Level of consciousness: Alert Ask patient the month and their age: Answers both correctly Ask patient to open & close eyes; make fist and let go: Obeys both correctly Best gaze (horizontal eye movement): Normal Visual field testing: No visual field loss Facial paresis (Show teeth/raise eyebrows/close eyes tight): Normal symmetrical movement Motor Function: Left Arm: Drift Motor Function: Right Arm: Normal (extends arm 90 (or 45) degrees for 10 seconds without drift Motor Function: Left Leg: Normal (extends leg 30 degrees for 5 seconds without drift) Motor Function: Right Leg: Normal (extends leg 30 degrees for 5 seconds without drift) Limb Ataxia: Present in one limb Sensory(Use pinprick test arms,legs,trunk,face/side to side): Normal Best language (Describe picture, name items, read sentences): No Aphasia Dysarthria (read several words): Normal articulation Extinction and Inattention: No abnormality - Total Score NIH Stroke Scale Score: 2 <Malaika Flores - Last Filed: 10/02/18 18:39> Past History - Travel Traveled outside of the country in the last 30 days: No Close contact w/someone who was outside of country & ill: No - Past Medical History COPD: No Diabetes: Yes HTN: Yes - Suicide/Smoking/Psychosocial Hx Smoking History: Former smoker Have you smoked in the past 12 months: No Information on smoking cessation initiated: No Hx Alcohol Use: No Drug/Substance Use Hx: No <Malaika Flores - Last Filed: 10/02/18 18:39> <Demetrice Carlin - Last Filed: 10/02/18 18:53> - Past Medical History Allergies/Adverse Reactions: Allergies Allergy/AdvReac Type Severity Reaction Status Date / Time No Known Allergies Allergy Verified 10/02/18 15:01 Home Medications: Ambulatory Orders Diltiazem Cd [Cardizem Cd -] 300 mg PO DAILY 02/12/18 Losartan Potassium 100 mg PO DAILY 02/12/18 Spironolactone 25 mg PO DAILY 02/12/18 Atorvastatin Ca [Lipitor] 20 mg PO HS #30 tablet 02/13/18 Gabapentin [Neurontin -] 100 mg PO BID #30 capsule 02/13/18 Review of Systems - Review of Systems Able to Perform ROS?: Yes Is the patient limited Mohawk proficient: No Constitutional: No: Fever HEENTM: No: Blurred Vision Respiratory: No: Shortness of Breath Cardiac (ROS): No: Chest Pain : No: Burning, Dysuria Neurological: Yes: Weakness (left upper and lower extremity ) <Malaika Flores - Last Filed: 10/02/18 18:39> *Physical Exam - Vital Signs Last Vital Signs Temp Pulse Resp BP Pulse Ox 98.7 F 91 H 18 165/83 99 10/02/18 15:01 10/02/18 15:01 10/02/18 15:01 10/02/18 15:01 10/02/18 15:01 - Physical Exam General Appearance: Yes: Nourished Neck: positive: Normal Thyroid Respiratory/Chest: positive: Lungs Clear, Normal Breath Sounds Cardiovascular: positive: Regular Rate, S1, S2 Gastrointestinal/Abdominal: positive: Normal Bowel Sounds, Flat, Soft Musculoskeletal: negative: CVA Tenderness Neurologic: positive: Fully Oriented, Alert, Normal Response, Motor Strength 5/ 5 (RUE/RLE: 5/5 LUE 5/5 LLE 3/5). negative: Facial Droop, Sensory Deficit <Malaika Flores - Last Filed: 10/02/18 18:39> - Vital Signs Last Vital Signs Temp Pulse Resp BP Pulse Ox 98.7 F 84 18 165/83 99 10/02/18 15:01 10/02/18 17:07 10/02/18 15:01 10/02/18 15:01 10/02/18 15:01 <Demetrice Carlin - Last Filed: 10/02/18 18:53> ED Treatment Course - LABORATORY CBC & Chemistry Diagram: 10/02/18 15:52 10/02/18 17:13 - RADIOLOGY Radiology Studies Ordered: Category Date Time Status HEAD CT WITHOUT CONTRAST [CT] Stat CT Scan 10/02/18 15:39 Ordered <Malaika Flores - Last Filed: 10/02/18 18:39> - LABORATORY CBC & Chemistry Diagram: 10/02/18 15:52 10/02/18 17:13 - ADDITIONAL ORDERS Additional order review: Laboratory Results 10/02/18 10/02/18 10/02/18 17:13 16:09 16:09 PT with INR Cancelled 13.20 H INR Cancelled 1.12 H PTT (Actin FS) 30.0 Sodium 140 Potassium 3.9 Chloride 106 Carbon Dioxide 25 Anion Gap 9 BUN 10 Creatinine 0.9 Creat Clearance w eGFR 65.50 Random Glucose 94 Calcium 10.0 Total Bilirubin 0.6 AST 15 ALT 20 Alkaline Phosphatase 62 Creatine Kinase 156 Creatine Kinase Index 0.6 CK-MB (CK-2) < 1.0 Troponin I < 0.02 Total Protein 8.1 Albumin 4.6 Triglycerides 76 Cholesterol 198 Total LDL Cholesterol 121 H HDL Cholesterol 64 H Beta HCG, Quant < 1.0 10/02/18 10/02/18 15:52 15:52 PT with INR INR PTT (Actin FS) Sodium Cancelled Potassium Cancelled Chloride Cancelled Carbon Dioxide Cancelled Anion Gap Cancelled BUN Cancelled Creatinine Cancelled Creat Clearance w eGFR Cancelled Random Glucose Cancelled Calcium Cancelled Total Bilirubin Cancelled AST Cancelled ALT Cancelled Alkaline Phosphatase Cancelled Creatine Kinase Cancelled Creatine Kinase Index CK-MB (CK-2) Troponin I Cancelled Total Protein Cancelled Albumin Cancelled Triglycerides Cancelled Cholesterol Cancelled Total LDL Cholesterol Cancelled HDL Cholesterol Cancelled Beta HCG, Quant Cancelled 10/02/18 15:52 RBC 4.02 MCV 91.7 MCHC 33.5 RDW 13.4 MPV 9.2 Neutrophils % 48.7 D Lymphocytes % 41.6 H Monocytes % 8.3 Eosinophils % 0.5 D Basophils % 0.9 - Medications Given in the ED: ED Medications Discontinued Medications Generic Name Dose Route Start Last Admin Trade Name Freq PRN Reason Stop Dose Admin Aspirin 325 mg 10/02/18 18:27 10/02/18 18:37 Ecotrin - PO 10/02/18 18:28 325 mg ONCE ONE Administration <Demetrice Carlin - Last Filed: 10/02/18 18:53> Medical Decision Making - Medical Decision Making 10/02/18 16:00 cbc/cmp/cardiac profile ekg head CT <Malaika Flores - Last Filed: 10/02/18 18:39> *DC/Admit/Observation/Transfer - Discharge Dispostion Decision to Admit order: Yes - Attestations Physician Attestion: 10/02/18 18:39 Malaika Flores <Malaika Flores - Last Filed: 10/02/18 18:39> - Discharge Dispostion Decision to Admit order: Yes Decision to Admit order Date/Time: 10/02/18 18:52 <Demetrice Carlin - Last Filed: 10/02/18 18:53> Diagnosis at time of Disposition: Weakness - Discharge Dispostion Condition at time of disposition: Guarded - Referrals Referrals: Marcie Castano MD [Primary Care Provider] -
--- NOTE | 2018-10-02 16:18 | PDOC ---
Attending Attestation - Resident Resident Name: Malaika Flores - ED Attending Attestation I have performed the following: I have examined & evaluated the patient, The case was reviewed & discussed with the resident, I agree w/resident's findings & plan - HPI HPI: 10/02/18 16:16 53 YOF with h/o HTN and prediabetes presenting with left leg and arm "heaviness " and weakness yesterday, while she was walking and noted she is dragging her left leg. no trauma. no back or neck pain. no PATINO, visual or hearing disturbances. no paresthesias 10/02/18 16:49 10/02/18 18:25 - Physicial Exam PE: 10/02/18 16:17 NAD, well appearing, PERRL, EOMI, nl conjunctiva, anicteric; neck supple. lungs clear, RRR, abdomen soft nontender. ALBERT x4, however, +mild LLE drift, 4/5 strength. No peripheral edema. normal color for ethnicity, WWP. Alert, oriented to person time and place. CN II-XII grossly intact. Strength prox and distally 5/5 in all extrem, 4/5 in LLE with mild drift. Sensation grossly intact to light touch. ALBERT x4. No cerebellar signs, no dysmetria, bilateral finger to nose and heel to sky equal and symmetric. Speech clear. 10/02/18 16:47 - Medical Decision Making 10/02/18 16:18 See HPI for details Vital signs reviewed, wnl. DDX neuropathy, sciatica, msk strain, CVA, WASHHOUSE HAND lesion/ischemia, spinal stenosis , demyelinating disorder Prior notes reviewed, including admissions, discharges and consultations. laboratory results and imaging reviewed, basic labs and lytes wnl, normal coags. Cardiac panel_neg trop EKG normal sinus rhythm, no interval abnormalities, narrow QRS, ST and T wave segments and morphology normal. Nonspecific T wave abnormalities ED course - CT head unremarkable - stroke scale 2, not tpa candidate onset of sx yesterday. - neuro cs with Dr Mora - admit tele for workup of LLE and LUE weakness, with documented exam and findings, neuro eval/workup. 10/02/18 18:50 10/02/18 18:51
[2018-10-02 16:26] LABS: BASO % 0.9 % (0-2.0); EOS % 0.5 % (0-4.5); HEMATOCRIT 36.9 % (32.4-45.2); HEMOGLOBIN 12.3 GM/dL (10.7-15.3); LYMPH % 41.6 % (8-40); MCH 30.7 pg (25.7-33.7); MCHC 33.5 g/dl (32.0-36.0); MEAN CELL VOLUME 91.7 fl (80-96); MEAN PLT VOLUME 9.2 fl (7.5-11.1); MONO % 8.3 % (3.8-10.2); NEUT % 48.7 % (42.8-82.8); PLATELET COUNT 286 K/MM3 (134-434); RBC 4.02 M/mm3 (3.60-5.2); RDW 13.4 % (11.6-15.6); WHITE BLOOD COUNT 4.4 K/mm3 (4.0-10.0)
[2018-10-02 17:51] LABS: INR 1.12 (0.83-1.09); PROTHROMBIN TIME (PATIENT) 13.2 SEC (9.7-13.0)
[2018-10-02 18:07] LABS: ALBUMIN 4.6 g/dl (3.4-5.0); ALK PHOS 62 U/L (45-117); ANION GAP 9 MMOL/L (8-16); BILIRUBIN,TOTAL 0.6 mg/dL (0.2-1); BLOOD UREA NITROGEN 10 mg/dL (7-18); CHLORIDE 106 mmol/L (98-107); CHOLESTEROL 198 mg/dL (50-200); CO2 25 mmol/L (21-32); CREATININE 0.9 mg/dL (0.55-1.3); GLUCOSE,RANDOM 94 mg/dL (74-106); HDL CHOLESTEROL 64 mg/dL (40-60); POTASSIUM 3.9 mmol/L (3.5-5.1); SGOT/AST 15 U/L (15-37); SGPT/ALT 20 U/L (13-61); SODIUM 140 mmol/L (136-145); TOT PROT 8.1 g/dl (6.4-8.2); TRIGLYCERIDES 76 mg/dL (0-150)
[2018-10-02] MEDS ORDERED: ASPIRIN 325 MG ENTERIC COATED TABLET (FP) PO ONE (18:27)
[2018-10-02] MEDS ORDERED: ASPIRIN 325 MG ENTERIC COATED TABLET (FP) ONE (18:34)
--- NOTE | 2018-10-02 19:17 | HP ---
CHIEF COMPLAINT: L sided weakness HISTORY OF PRESENT ILLNESS: 53 year old female with a history of hypertension presents with left arm and left leg weakness that began at 3pm yesterday while she was at work. 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 Reports that she took aspirin yesterday and went to bed. This morning, she woke up and her symptoms persisted. Reports this never happening to her before. Reports that she was on a flight from [place] on Friday , when she felt palpitations that lasted for several minutes. Denies chest pain , SOB, nausea, vomiting, diarrhea, fevers, chills, denies sensory loss. Reports that her L arm symptoms improved but her leg symptoms persist. Denies any problems chewing or swallowing. Recent Travel: traveled from [place] on Friday PAST MEDICAL HISTORY: HTN Social History: Smoking: quit 30 years ago Alcohol: denies Drugs: denies Family History: no family history of stroke, cancer, heart disease. Mother had diabetes Allergies No Known Allergies Allergy (Verified 10/02/18 15:01) HOME MEDICATIONS: Home Medications Medication Instructions Recorded Diltiazem Cd [Cardizem Cd -] 300 mg PO DAILY 02/12/18 Losartan Potassium 100 mg PO DAILY 02/12/18 Spironolactone 25 mg PO DAILY 02/12/18 Atorvastatin Ca [Lipitor] 20 mg PO HS #30 tablet 02/13/18 Gabapentin [Neurontin -] 100 mg PO BID #30 capsule 02/13/18 REVIEW OF SYSTEMS CONSTITUTIONAL: Absent: fever, chills, diaphoresis, generalized weakness, malaise, loss of appetite, weight change HEENT: Absent: rhinorrhea, nasal congestion, throat pain, throat swelling, difficulty swallowing, mouth swelling, ear pain, eye pain, visual changes CARDIOVASCULAR: Absent: chest pain, syncope, palpitations, irregular heart rate, lightheadedness , peripheral edema RESPIRATORY: Absent: cough, shortness of breath, dyspnea with exertion, orthopnea, wheezing, stridor, hemoptysis GASTROINTESTINAL: Absent: abdominal pain, abdominal distension, nausea, vomiting, diarrhea, constipation, melena, hematochezia GENITOURINARY: Absent: dysuria, frequency, urgency, hesitancy, hematuria, flank pain, genital pain MUSCULOSKELETAL: Absent: myalgia, arthralgia, joint swelling, back pain, neck pain SKIN: Absent: rash, itching, pallor HEMATOLOGIC/IMMUNOLOGIC: Absent: easy bleeding, easy bruising, lymphadenopathy, frequent infections ENDOCRINE: Absent: unexplained weight gain, unexplained weight loss, heat intolerance, cold intolerance NEUROLOGIC: focal weakness Absent: headache, r paresthesias, dizziness, unsteady gait, seizure, mental status changes, bladder or bowel incontinence PSYCHIATRIC: Absent: anxiety, depression, suicidal or homicidal ideation, hallucinations. PHYSICAL EXAMINATION Vital Signs - 24 hr 10/02/18 10/02/18 10/02/18 15:01 17:07 18:55 Temperature 98.7 F Pulse Rate 91 H Pulse Rate [ 84 88 Apical] Respiratory 18 18 Rate Blood Pressure 165/83 Blood Pressure 157/74 [Right Arm] O2 Sat by Pulse 99 98 Oximetry (%) GENERAL: A&Ox3, no acute distress EYES: PERRLA, EOMI ENT: Moist mucus membranes NECK: No JVD LUNGS: CTA, no wheezes HEART: RRR, loud systolic murmur noted on exam in 2nd R intercostal space ABDOMEN: Soft, nontender, BS present MUSCULOSKELETAL: No CVA Tenderness EXTREMITIES: 2+ pulses, no edema. NEUROLOGICAL: Cranial nerves II-XII intact. RUE and LUE both motor and sensory systems intact. RLE normal motor strength. LLE 4/5 strength. Sensation intact throughout. Romberg negative. no dysmetria or dysdiadokinesia. gait favors R side. Reflexes 2/4 b/l upper and lower extremities Laboratory Results - last 24 hr 10/02/18 10/02/18 10/02/18 15:52 15:52 15:52 WBC 4.4 RBC 4.02 Hgb 12.3 Hct 36.9 MCV 91.7 MCH 30.7 MCHC 33.5 RDW 13.4 Plt Count 286 MPV 9.2 Absolute Neuts (auto) 2.2 Neutrophils % 48.7 D Lymphocytes % 41.6 H Monocytes % 8.3 Eosinophils % 0.5 D Basophils % 0.9 Nucleated RBC % 0 PT with INR INR PTT (Actin FS) Sodium Cancelled Potassium Cancelled Chloride Cancelled Carbon Dioxide Cancelled Anion Gap Cancelled BUN Cancelled Creatinine Cancelled Creat Clearance w eGFR Cancelled Random Glucose Cancelled Calcium Cancelled Total Bilirubin Cancelled AST Cancelled ALT Cancelled Alkaline Phosphatase Cancelled Creatine Kinase Cancelled Creatine Kinase Index CK-MB (CK-2) Troponin I Cancelled Total Protein Cancelled Albumin Cancelled Triglycerides Cancelled Cholesterol Cancelled Total LDL Cholesterol Cancelled HDL Cholesterol Cancelled Beta HCG, Quant Cancelled 10/02/18 10/02/18 10/02/18 16:09 16:09 17:13 WBC RBC Hgb Hct MCV MCH MCHC RDW Plt Count MPV Absolute Neuts (auto) Neutrophils % Lymphocytes % Monocytes % Eosinophils % Basophils % Nucleated RBC % PT with INR 13.20 H Cancelled INR 1.12 H Cancelled PTT (Actin FS) 30.0 Sodium 140 Potassium 3.9 Chloride 106 Carbon Dioxide 25 Anion Gap 9 BUN 10 Creatinine 0.9 Creat Clearance w eGFR 65.50 Random Glucose 94 Calcium 10.0 Total Bilirubin 0.6 AST 15 ALT 20 Alkaline Phosphatase 62 Creatine Kinase 156 Creatine Kinase Index 0.6 CK-MB (CK-2) < 1.0 Troponin I < 0.02 Total Protein 8.1 Albumin 4.6 Triglycerides 76 Cholesterol 198 Total LDL Cholesterol 121 H HDL Cholesterol 64 H Beta HCG, Quant < 1.0 ASSESSMENT/PLAN: 53 year old female with a history of hypertension presents with left arm and left leg weakness admitted for workup of acute CVA #Acute CVA: patient's persistent weakness in the LLE and negative CT suggests acute ischemic cerebral event, NIHSS of 2 -keep head of bed elevated -permissive hypertension 24 hours, no acute need to drop BP from 160s -physical therapy -ASA 325 given in ED, continue with 81 daily -echo -carotid dopplers -EKG normal sinus rhythm with LVH and L atrial enlargement, qtc 392 -MRI ordered -telemetry monitoring -statin ordered -lipid profile shows LDL 121/HDL64 -neuro consulted #FEN -LR @ 83cc/hr 1 bag -soft diet, patient passed bedside swallow -replete lytes as necessary in AM #Prophylaxis -lovenox #Disposition -admit inpatient tele Visit type - Emergency Visit Emergency Visit: Yes ED Registration Date: 10/02/18 Care time: The patient presented to the Emergency Department on the above date and was hospitalized for further evaluation of their emergent condition. - New Patient This patient is new to me today: No - Critical Care Critical Care patient: No
--- NOTE | 2018-10-02 19:33 | PN ---
Teaching Attending Note Name of Resident: Leonard Pena ATTENDING PHYSICIAN STATEMENT I saw and evaluated the patient. I reviewed the resident's note and discussed the case with the resident. I agree with the resident's findings and plan as documented. SUBJECTIVE: Seen and examined; please refer to resident note for further historical information. Briefly, this is a 53 y/o female presenting for L-arm/leg heaviness of >24 hours; NIHSS documented as 2 in ER and not tPA candidate due to time of sx onset. Case has been discussed with neurology by ER staff and appreciate expert opinion. Briefly, she has a PMH of HTN, HLD, pre-DM, OA. She had L-leg and L-arm weakness starting yesterday; no fall no LOC. Started at work, never happened to her before. Remote history of smoker, no EtOH or tobacco. No prior neuro diagnosis, doesn't follow with neurology. Symptoms in her arm have improved but her leg did not; NIHSS in the ER was documented as a 2. She was hypertensive to the 160s in the ER. 10 sys ROS done and negative aside from HPI PMH, PSH, FH, SH reviewed Home Medications Medication Instructions Recorded Diltiazem Cd [Cardizem Cd -] 300 mg PO DAILY 02/12/18 Losartan Potassium 100 mg PO DAILY 02/12/18 Spironolactone 25 mg PO DAILY 02/12/18 Atorvastatin Ca [Lipitor] 20 mg PO HS #30 tablet 02/13/18 Gabapentin [Neurontin -] 100 mg PO BID #30 capsule 02/13/18 OBJECTIVE: VS, labs, imaging reviewed NAD, AAO, resting comfortably in bed RRR s1/2 no mgr, sysolic murmur heard parasternal CN 2-12 wnl, normal reflexes, normal sensory, weakness L-leg/foot with dorsiflexion, gait favors R-side Lungs CTAB, w/ sym exp Normal mood, appropriate behavior EKG reviewed CT head reviewed; no evidence of acute IC pathology MRI pending; prelim report with prominent perivascular space on the R-side Echo pending; echo 01/2018 w/ nl lv/rv, nl rvsp, mild tr ASSESSMENT AND PLAN: Patient presents for L-sided arm and leg weakness; Weakness, r/o CVA -L-arm resolved, persists in L-leg; monitor on telmetry. Neuro checks and seizure precautions -Followup final MRI report; continue ASA and statin. Neurology has been consulted; appreciate expert opinion -Followup up echo, carotid dopplers. Followup lipids, TSH, A1c. Marketing Clerk to minimize risks. -PT/OT/swallow evaluation. HTN -Allowing for permissive HTN; resume PO medications when OK with neurology HLD -Check lipids; continue statin Pre-DM -Follow glucose; check A1c, SSI if needed OA -PRN management FENA Full Code
[2018-10-02] MEDS: GABAPENTIN 100 MG CAPSULE (FP) PO SCH (22:21)
[2018-10-02] MEDS: ATORVASTATIN CA 40 MG TABLET (FP) PO SCH (22:21)
[2018-10-02 22:47] VITALS: BMI 31.4
[2018-10-02] MEDS ORDERED: LACTATED RINGERS SOLUTION 1,000 ML/1,000 ML INFUS.BAG IV SCH (23:00)
[2018-10-03 08:09] LABS: ANION GAP 7 MMOL/L (8-16); BLOOD UREA NITROGEN 12 mg/dL (7-18); CALCIUM 9.2 mg/dL (8.5-10.1); CHLORIDE 108 mmol/L (98-107); CO2 24 mmol/L (21-32); CREATININE 0.8 mg/dL (0.55-1.3); GLUCOSE,RANDOM 99 mg/dL (74-106); MAGNESIUM 2.1 mg/dL (1.8-2.4); PHOSPHOROUS 3.9 mg/dL (2.5-4.9); POTASSIUM 3.8 mmol/L (3.5-5.1); SODIUM 138 mmol/L (136-145)
--- NOTE | 2018-10-03 08:29 | EKG ---
Test Reason : Blood Pressure : / mmHG Vent. Rate : 088 BPM Atrial Rate : 088 BPM P-R Int : 168 ms QRS Dur : 080 ms QT Int : 324 ms P-R-T Axes : 047 -10 -02 degrees QTc Int : 392 ms NORMAL SINUS RHYTHM POSSIBLE LEFT ATRIAL ENLARGEMENT LEFT VENTRICULAR HYPERTROPHY NONSPECIFIC T WAVE ABNORMALITY ABNORMAL ECG WHEN COMPARED WITH ECG OF 13-FEB-2018 08:21, NO SIGNIFICANT CHANGE WAS FOUND Confirmed by DERRICK KATZ, YONATAN ([id number]) on 10/03/2018 8:29:05 AM Referred By: Confirmed By:YONATAN MEZA MD
[2018-10-03 08:45] LABS: BASO % 1.9 % (0-2.0); EOS % 2.4 % (0-4.5); HEMATOCRIT 35.1 % (32.4-45.2); HEMOGLOBIN 11.8 GM/dL (10.7-15.3); LYMPH % 48.6 % (8-40); MCH 31.1 pg (25.7-33.7); MCHC 33.7 g/dl (32.0-36.0); MEAN CELL VOLUME 92.3 fl (80-96); MEAN PLT VOLUME 9.3 fl (7.5-11.1); MONO % 9.1 % (3.8-10.2); PLATELET COUNT 260 K/MM3 (134-434); RDW 13.3 % (11.6-15.6); WHITE BLOOD COUNT 5.1 K/mm3 (4.0-10.0)
[2018-10-03] MEDS ORDERED: SPIRONOLACTONE 25 MG TABLET (FP) PO SCH (10:00)
[2018-10-03] MEDS ORDERED: LOSARTAN POTASSIUM 50 MG TABLET (FP) PO SCH (10:00)
[2018-10-03] MEDS: GABAPENTIN 100 MG CAPSULE (FP) PO SCH ×2 (10:22→11:06)
[2018-10-03] MEDS: ENOXAPARIN NA (PORCINE) 40 MG/0.4 ML DISP.SYRIN SQ SCH (10:22)
[2018-10-03] MEDS: ASPIRIN COATED 81 MG TABLET.EC PO SCH (10:22)
[2018-10-03] MEDS ORDERED: LOSARTAN POTASSIUM 50 MG TABLET (FP) PO ONE (14:06)
--- NOTE | 2018-10-03 14:13 | CONSULT ---
Consult - text type - Consultation Consultation Note: NEUROLOGY CONSULTATION is greatly appreciated: Events reviewed and discussed with Dr. Hagen in the ED yesterday and Dr. Jaramillo today. 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 PMH sig for HTN, Borderline DM, episodic PATINO's with photophobia c/w Migraines- on Diltiazem Cd 300 mg; Losartan 100 mg; Spironolactone 25 mg; Metformin. Admitted here 02/17 with chest pain and palpitations. Pt. claims it was attributed to anxiety. Started on Gabapentin at that time but D/C'ed by her PMD. Last week had palpitations traveling home from [place] attributed to fear of flying. Was in her [employer] until evening when she experience "heaviness" of the right foot climbing stairs at work. Once home had waxing and waning numbness and tingling of the left leg, arm and face. This had resolved in the morning but returned at work. No low back complaints. Ct and MRI of brain (both reviewed): Normal studies. Carotid duplex doppler: Normal. Chol= 198mg%, A1-C=6.4% ERIK: BP's are 120/70-80 (off meds). No carotid bruits. Cor:^0's reg. NEURO: MS/speech: Normal CN II-XII: normal Motor: No drift or tremor. Normal arm strength and SARANYA's. FMT of left foot suggests variable, mild weakness of left toe extension, ankle dorsiflexion, inversion, eversion. Normal reflexes incl AJ's. Toes downgoing. Coord: No FTN or HTS dystaxia Sensory: Normal. Romberg - Gait: Sl stiff-legged on left. Mild left steppage. Difficulty elevating on the left heals and toes. IMP: Isolated weakness of the left foot. 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 R/O sciatic mononeuropathy (but would be unusual as a pure motor event sparing the AJ, and would not explain sensory symptoms in the arm and face.) SUGGEST: Agree with atorvastatin, antiplatelet Rx with ASA and appropriate BP control. Cardiology consultation to r/o possible cardioembolism. Follow glucose and Rx if appropriate. Neuro f/u as out patient for EMG and w/u of possible mononeuropathy. Thank you very much, Terence Mora MD
--- NOTE | 2018-10-03 15:03 | PN ---
Progress Note (short form) - Note Progress Note: c/o ataxic gait. numbness in face and arms has resolved. denies CP, SOB, fever, chills, N/V/C/D Current Medications Generic Name Dose Route Start Last Admin Trade Name Boo PRN Reason Stop Dose Admin Aspirin 81 mg 10/03/18 10:00 10/03/18 10:22 Ecotrin - PO 81 mg DAILY MATTHEW Administration Atorvastatin Calcium 40 mg 10/02/18 22:00 10/02/18 22:21 Lipitor - PO 40 mg HS MATTHEW Administration Enoxaparin Sodium 40 mg 10/03/18 10:00 10/03/18 10:22 Lovenox - SQ 40 mg DAILY MATTHEW Administration Last Vital Signs Temp Pulse Resp BP Pulse Ox 98 F 86 20 128/60 97 10/03/18 10:00 10/03/18 10:00 10/03/18 10:00 10/03/18 10:00 10/03/18 09:00 General NAD CV s1 S2 RRR no murmur/rub/gallop Lungs CTA B/L no wheezing/rales/rhonchi abdomen soft NT/ND Extremitie trace pitting edema B/L no calf tenderness Neuro CN II-XII grossly intact sensation and strength equal in all extremities ataxic gait CBCD WBC 5.1 K/mm3 (4.0-10.0) 10/03/18 05:30 RBC 3.80 M/mm3 (3.60-5.2) 10/03/18 05:30 Hgb 11.8 GM/dL (10.7-15.3) 10/03/18 05:30 Hct 35.1 % (32.4-45.2) 10/03/18 05:30 MCV 92.3 fl (80-96) 10/03/18 05:30 MCHC 33.7 g/dl (32.0-36.0) 10/03/18 05:30 RDW 13.3 % (11.6-15.6) 10/03/18 05:30 Plt Count 260 K/MM3 (134-434) 10/03/18 05:30 MPV 9.3 fl (7.5-11.1) 10/03/18 05:30 CMP Sodium 138 mmol/L (136-145) 10/03/18 05:30 Potassium 3.8 mmol/L (3.5-5.1) 10/03/18 05:30 Chloride 108 mmol/L (98-107) H 10/03/18 05:30 Carbon Dioxide 24 mmol/L (21-32) 10/03/18 05:30 Anion Gap 7 MMOL/L (8-16) L 10/03/18 05:30 BUN 12 mg/dL (7-18) 10/03/18 05:30 Creatinine 0.8 mg/dL (0.55-1.3) 10/03/18 05:30 Creat Clearance w eGFR 75.03 (>60) 10/03/18 05:30 Calcium 9.2 mg/dL (8.5-10.1) 10/03/18 05:30 Total Bilirubin 0.6 mg/dL (0.2-1) 10/02/18 17:13 AST 15 U/L (15-37) 10/02/18 17:13 ALT 20 U/L (13-61) 10/02/18 17:13 Alkaline Phosphatase 62 U/L (45-117) 10/02/18 17:13 Total Protein 8.1 g/dl (6.4-8.2) 10/02/18 17:13 Albumin 4.6 g/dl (3.4-5.0) 10/02/18 17:13 A/p 53yo F wtih PMH HTN, DM and dyslipidemia presented with L sided numbness and ataxia and admitted for stroke workup 1. L sided numbness- symptoms has resolved but remains to have ataxic gait. MRI negative. evaluated by neuro. will wait on cardio eval. cont asa/statin. PT eval. will need neuro follow up and possible prolonged holter monitor as outpatient 2. HTN- BP well controlled here off medications however pt takes BP multiple times at home and consistently gets in 140's at home and was in 160 when symptoms started. never had secondary workup. has been on these medications for 5 years. will re-start one by one slowly, start losartan 100mg 3. Pedal edema- recent flight from [place]. low suspicion for DVT. will get doppler to r/o as may be contributing to gait 4. DM- on metformin at home. will hold for now. bgm and iss. re-start on discharge. A1c here 6.4 she reports was higher at last MD appt 5. dyslipidemia-statin 6. will monitor BP and f/u with cardio. anticipate discharge in next 24H Visit type - Emergency Visit Emergency Visit: Yes ED Registration Date: 10/02/18 Care time: The patient presented to the Emergency Department on the above date and was hospitalized for further evaluation of their emergent condition. - New Patient This patient is new to me today: Yes Date on this admission: 10/03/18 - Critical Care Critical Care patient: No - Discharge Referral Referred to [facility] Med P.C.: No
--- NOTE | 2018-10-03 16:37 | CON.CARD ---
Consult Consult Specialty:: Cardiology for dr. Dockery - History of Present Illness History of Present Illness: Briefly, this is a 53 y/o female presenting for L-arm/leg heaviness of >24 hours ; NIHSS documented as 2 in ER and not tPA candidate due to time of sx onset. Case has been discussed with neurology by ER staff and appreciate expert opinion. Briefly, she has a PMH of HTN, HLD, pre-DM, OA. She had L-leg and L- arm weakness starting yesterday; no fall no LOC. Started at work, never happened to her before. Remote history of smoker, no EtOH or tobacco. No prior neuro diagnosis, doesn't follow with neurology. Symptoms in her arm have improved but her leg did not; NIHSS in the ER was documented as a 2. She was hypertensive to the 160s in the ER. - History Source History Provided By: Patient, Medical Record - Past Medical History Cardio/Vascular: Yes: HTN, Hyperlipdemia - Alcohol/Substance Use Hx Alcohol Use: No - Smoking History Smoking history: Former smoker Have you smoked in the past 12 months: No Home Medications - Allergies Allergies/Adverse Reactions: Allergies Allergy/AdvReac Type Severity Reaction Status Date / Time No Known Allergies Allergy Verified 10/02/18 15:01 - Home Medications Home Medications: Ambulatory Orders Diltiazem Cd [Cardizem Cd -] 300 mg PO DAILY 02/12/18 Losartan Potassium 100 mg PO DAILY 02/12/18 Spironolactone 25 mg PO DAILY 02/12/18 Gabapentin [Neurontin -] 100 mg PO BID #30 capsule 02/13/18 Aspirin Coated [Ecotrin -] 81 mg PO DAILY tablet.ec 10/04/18 Atorvastatin Ca [Lipitor] 40 mg PO HS #30 tablet 10/04/18 Review of Systems - Review of Systems Constitutional: reports: No Symptoms Eyes: reports: No Symptoms HENT: reports: No Symptoms Neck: reports: No Symptoms Cardiovascular: reports: No Symptoms Gastrointestinal: reports: No Symptoms Genitourinary: reports: No Symptoms Breasts: reports: No Symptoms Reported Musculoskeletal: reports: No Symptoms Integumentary: reports: No Symptoms Neurological: reports: Weakness Endocrine: reports: No Symptoms Hematology/Lymphatic: reports: No Symptoms Psychiatric: reports: No Symptoms Vital Signs: Vital Signs Temperature 98 F 10/03/18 10:00 Pulse Rate 86 10/03/18 10:00 Respiratory Rate 20 10/03/18 10:00 Blood Pressure 128/60 10/03/18 10:00 O2 Sat by Pulse Oximetry (%) 97 10/03/18 09:00 Constitutional: Yes: Well Nourished, No Distress, Calm Eyes: Yes: WNL, Conjunctiva Clear, EOM Intact HENT: Yes: WNL, Atraumatic, Normocephalic Neck: Yes: WNL, Supple, Trachea Midline Respiratory: Yes: WNL, Regular, CTA Bilaterally Gastrointestinal: Yes: WNL, Normal Bowel Sounds Renal/: Yes: WNL Cardiovascular: Yes: WNL, Regular Rate and Rhythm Musculoskeletal: Yes: WNL Extremities: Yes: WNL Integumentary: Yes: WNL Neurological: Yes: Alert, Oriented, Weakness ...Motor Strength: WNL Psychiatric: Yes: WNL, Alert, Oriented - Other Data Labs, Other Data: CBC, BMP 10/03/18 05:30 10/03/18 05:30 INR, PTT INR 1.12 (0.83-1.09) H 10/02/18 16:09 Troponin, BNP 10/02/18 10/02/18 15:52 17:13 Troponin I Cancelled < 0.02 Troponin, BNP 10/02/18 10/02/18 15:52 17:13 Troponin I Cancelled < 0.02 Imaging - Results Chest X-ray: Pending EKG: Image Reviewed (sr lvh rep abn) Problem List - Problems (1) Weakness Code(s): R53.1 - WEAKNESS (2) Chest pain Code(s): R07.9 - CHEST PAIN, UNSPECIFIED Qualifiers: Chest pain type: unspecified Qualified Code(s): R07.9 - Chest pain, unspecified Assessment/Plan 53 y.o htn, hlp, admitted with possible CVA (see neurology consult discussion) Plan; telemetry, r/o arrhythmia as the source of cardioembolism, ECHO asa dvt plx. Restart BP meds if needed.
[2018-10-03] MEDS: ATORVASTATIN CA 40 MG TABLET (FP) PO SCH (22:11)
[2018-10-04 08:45] LABS: PH,URINE 5.5 (5.0-8.0); URINE APPEARANCE CLEAR; URINE BILIRUBIN NEGATIVE (NEGATIVE); URINE COLOR YELLOW; URINE GLUCOSE (UA) NEGATIVE (NEGATIVE); URINE KETONE NEGATIVE (NEGATIVE); URINE LEUK ESTERASE NEGATIVE (NEGATIVE); URINE NITRITE NEGATIVE (NEGATIVE); URINE PROTEIN NEGATIVE (NEGATIVE); URINE UROBILINOGEN 0.2 mg/dL (0.2-1.0)
--- NOTE | 2018-10-04 09:28 | PN ---
Progress Note, Physician History of Present Illness: Briefly, this is a 53 y/o female presenting for L-arm/leg heaviness of >24 hours ; NIHSS documented as 2 in ER and not tPA candidate due to time of sx onset. Case has been discussed with neurology by ER staff and appreciate expert opinion. Briefly, she has a PMH of HTN, HLD, pre-DM, OA. She had L-leg and L- arm weakness starting yesterday; no fall no LOC. Started at work, never happened to her before. Remote history of smoker, no EtOH or tobacco. No prior neuro diagnosis, doesn't follow with neurology. Symptoms in her arm have improved but her leg did not; NIHSS in the ER was documented as a 2. She was hypertensive to the 160s in the ER. - Current Medication List Current Medications: Active Medications Aspirin (Ecotrin -) 81 mg PO DAILY [facility] Last Admin: 10/03/18 10:22 Dose: 81 mg Atorvastatin Calcium (Lipitor -) 40 mg PO HS [facility] Last Admin: 10/03/18 22:11 Dose: 40 mg Enoxaparin Sodium (Lovenox -) 40 mg SQ DAILY [facility] Last Admin: 10/03/18 10:22 Dose: 40 mg - Objective Vital Signs: Vital Signs Temperature 97.8 F 10/04/18 06:00 Pulse Rate 78 10/04/18 06:00 Respiratory Rate 18 10/04/18 08:49 Blood Pressure 125/76 10/04/18 06:00 O2 Sat by Pulse Oximetry (%) 97 10/04/18 08:49 Eyes: Yes: WNL, Conjunctiva Clear, EOM Intact HENT: Yes: WNL, Atraumatic, Normocephalic Neck: Yes: WNL, Supple, Trachea Midline Cardiovascular: Yes: WNL, Regular Rate and Rhythm Respiratory: Yes: WNL, Regular, CTA Bilaterally Gastrointestinal: Yes: WNL, Normal Bowel Sounds Genitourinary: Yes: WNL Musculoskeletal: Yes: WNL Extremities: Yes: WNL Edema: No Integumentary: Yes: WNL Neurological: Yes: WNL, Alert, Oriented ...Motor Strength: WNL Psychiatric: Yes: WNL Labs: CBC, BMP 10/03/18 05:30 10/03/18 05:30 INR, PTT INR 1.12 (0.83-1.09) H 10/02/18 16:09 Problem List - Problems (1) Weakness Code(s): R53.1 - WEAKNESS (2) Chest pain Code(s): R07.9 - CHEST PAIN, UNSPECIFIED Qualifiers: Chest pain type: unspecified Qualified Code(s): R07.9 - Chest pain, unspecified Assessment/Plan 53 y.o htn, hlp, admitted with possible CVA (see neurology consult discussion) Plan; telemetry, r/o arrhythmia as the source of cardioembolism, ECHO asa dvt plx. cont Losartan coverage dr. Dockery.
[2018-10-04] MEDS: ASPIRIN COATED 81 MG TABLET.EC PO SCH (10:32)
[2018-10-04] MEDS: ENOXAPARIN NA (PORCINE) 40 MG/0.4 ML DISP.SYRIN SQ SCH ×2 (10:32→12:11)
--- NOTE | 2018-10-04 11:14 | PN ---
Physical Exam: SUBJECTIVE: Patient seen and examined at bedside. Still complains of mild weakness in L leg but can walk. No pain. No palpitations OBJECTIVE: Vital Signs Period Temp Pulse Resp BP Sys/[place] Pulse Ox Last 24 Hr 97.8 F-98.2 F 70-78 18-20 125-145/76-97 97-97 GENERAL: A&Ox3, no acute distress EYES: PERRLA, EOMI ENT: Moist mucus membranes NECK: No JVD LUNGS: CTA, no wheezes HEART: RRR, loud systolic murmur noted on exam in 2nd R intercostal space ABDOMEN: Soft, nontender, BS present MUSCULOSKELETAL: No CVA Tenderness EXTREMITIES: 2+ pulses, no edema. NEUROLOGICAL: Cranial nerves II-XII intact. RUE and LUE both motor and sensory systems intact. RLE normal motor strength. LLE 4/5 strength. Sensation intact throughout. Romberg negative. no dysmetria or dysdiadokinesia. gait favors R side. Reflexes 2/4 b/l upper and lower extremities Laboratory Results - last 24 hr 10/03/18 10/03/18 16:39 23:45 POC Glucometer 106 Urine Color Yellow Urine Appearance Clear Urine pH 5.5 Ur Specific [place] 1.012 Urine Protein Negative Urine Glucose (UA) Negative Urine Ketones Negative Urine Blood Negative Urine Nitrite Negative Urine Bilirubin Negative Urine Urobilinogen 0.2 Ur Leukocyte Esterase Negative Active Medications Generic Name Dose Route Start Last Admin Trade Name Freq PRN Reason Stop Dose Admin Aspirin 81 mg 10/03/18 10:00 10/04/18 10:32 Ecotrin - PO 81 mg DAILY MATTHEW Administration Atorvastatin Calcium 40 mg 10/02/18 22:00 10/03/18 22:11 Lipitor - PO 40 mg HS MATTHEW Administration Enoxaparin Sodium 40 mg 10/03/18 10:00 10/04/18 10:32 Lovenox - SQ 40 mg DAILY MATTHEW Administration ASSESSMENT/PLAN: 53 year old female with a history of hypertension presents with left arm and left leg weakness admitted for workup of acute CVA #Acute Motor Weakness of Left Lower Extremity: patient's persistent weakness in the LLE and negative CT suggests acute ischemic cerebral event, NIHSS of 2 -physical therapy -continue ASA 81 -echo pending for tomorrow -carotid dopplers -EKG normal sinus rhythm with LVH and L atrial enlargement, qtc 392 -MRI negative for CVA -telemetry monitoring negative for paroxysmal atrial fibrillation -continue atorvastatin 40 -neurology consultation appreciated; could be acute CVA vs peripheral nerve disorder vs mononeuropathy, will need outpatient workup #Prediabetes -patient is on metformin 500 daily in AM, will restart -check glucose #Hypertension -restarted home meds #FEN -No fluids -soft diet, patient passed bedside swallow -replete lytes as necessary in AM #Prophylaxis -lovenox #Disposition -inpatient tele, anticipate DC tomorrow after cardiology workup Visit type - Emergency Visit Emergency Visit: Yes ED Registration Date: 10/02/18 Care time: The patient presented to the Emergency Department on the above date and was hospitalized for further evaluation of their emergent condition. - New Patient This patient is new to me today: No - Critical Care Critical Care patient: No
[2018-10-04] MEDS ORDERED: ARTIFICIAL TEARS (POLYVINYL ALCOHOL) OPTH DROPS OU PRN (11:20)
--- NOTE | 2018-10-04 12:25 | PN ---
Teaching Attending Note Name of Resident: Leonard Pena ATTENDING PHYSICIAN STATEMENT I saw and evaluated the patient. I reviewed the resident's note and discussed the case with the resident. I agree with the resident's findings and plan as documented. SUBJECTIVE: OBJECTIVE: patient has 5/5 strength in the upper ext 4/5 weakness on the left lower ext s1 and s2 rrr lungs CTA good air entry abdomen soft non-tender ASSESSMENT AND PLAN: 53 year old female with a history of hypertension presents with left arm and left leg weakness admitted for workup of acute CVA, patient has been having a rough time at work, and she stated that that is bothering her lately more than usual #Acute Motor Weakness of Left Lower Extremity: patient's persistent weakness in the LLE and negative CT suggests acute ischemic cerebral event, NIHSS of 2 -physical therapy -continue ASA 81 -echo pending for tomorrow -carotid doppler US -EKG normal sinus rhythm with LVH and L atrial enlargement, qtc 392 -MRI negative for CVA -telemetry monitoring negative for paroxysmal atrial fibrillation -continue atorvastatin 40mg -neurology could be acute CVA vs peripheral nerve disorder vs mononeuropathy, will need outpatient workup #Prediabetes -patient is on metformin 500 daily in AM, will restart -check glucose obtain A1C diet and exercise encourage #Hypertension -restarted home meds
--- NOTE | 2018-10-04 20:12 | PN ---
Progress Note (short form) - Note Progress Note: NEUROLOGY PROGRESS: Events reviewed, patient examined. Pt notes she was walking extensively in the halls today with improved strength and gait. No facial or arm complaints. EXAM: feet rest symmetrically Normal; inversion, eversion and plantarflexion. Left ankle and toe dorsiflexion improved (4+/5). Normal AJ''s Vibration and temp Normal. Pin reduced diffusely over left foot. Gait Normal. Able to elevate on toes. Still slight difficulty elevating on heals. IMP: Left foot/ankle weakness clearly improving. Doubt a cerebrovascular etiology. Possibly partial left sciatic mononeuropathy (diabetic). SUGGEST: Stable for D/C Check ESR, CRP, [place] [facility] f/u, EMG as out patient. Thank you very much, Terence Mora MD
[2018-10-04] MEDS: ATORVASTATIN CA 40 MG TABLET (FP) PO SCH (21:43)
[2018-10-05 10:00] VITALS: BP 142/90; PULSE 86; TEMP 98
[2018-10-05] MEDS ORDERED: ACETAMINOPHEN 325 MG TABLET (FP) ONE (10:12)
[2018-10-05] MEDS: ASPIRIN COATED 81 MG TABLET.EC PO SCH (10:13)
[2018-10-05] MEDS: ENOXAPARIN NA (PORCINE) 40 MG/0.4 ML DISP.SYRIN SQ SCH (10:14)
--- NOTE | 2018-10-05 10:20 | PN ---
Progress Note, Physician History of Present Illness: Left foot weakness resolved, antihypertensive agents have not been resumed yet. - Current Medication List Current Medications: Active Medications Artificial Tears (Artificial Tears) 1 drop OU TID PRN PRN Reason: DRY EYES Last Admin: 10/04/18 21:55 Dose: 1 drop Aspirin (Ecotrin -) 81 mg PO DAILY [facility] Last Admin: 10/05/18 10:13 Dose: 81 mg Atorvastatin Calcium (Lipitor -) 40 mg PO HS [facility] Last Admin: 10/04/18 21:43 Dose: 40 mg Enoxaparin Sodium (Lovenox -) 40 mg SQ DAILY [facility] Last Admin: 10/05/18 10:14 Dose: Not Given Metformin HCl (Glucophage Xr -) 500 mg PO DAILY [facility] Last Admin: 10/05/18 10:13 Dose: 500 mg - Objective Vital Signs: Vital Signs Temperature 98 F 10/05/18 09:00 Pulse Rate 86 10/05/18 09:00 Respiratory Rate 20 10/05/18 09:00 Blood Pressure 142/90 10/05/18 09:00 O2 Sat by Pulse Oximetry (%) 98 10/05/18 08:45 Constitutional: Yes: No Distress, Calm Neck: Yes: Supple Cardiovascular: Yes: Regular Rate and Rhythm Respiratory: Yes: Regular, CTA Bilaterally Gastrointestinal: Yes: Normal Bowel Sounds, Soft Edema: No Labs: CBC, BMP 10/03/18 05:30 10/03/18 05:30 INR, PTT INR 1.12 (0.83-1.09) H 10/02/18 16:09 - ....Imaging EKG: Report Reviewed (Tele: NSR, no PAF) Problem List - Problems (1) 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 Left foot/ankle weakness clearly improving. Doubt a cerebrovascular etiology (MRI negative for CVA) Possibly partial left sciatic mononeuropathy (diabetic). 2. Hypertension 3. Hyperlipidemia 4. Type 2 DM P:1. No events on telemetry 2. F/u EMG as outpatient 3. ASA, Lipitor, resume losartan 100 qd, also on Cardizem CD 300 qd and Aldactone 25 qd as outpatient 4. F/u echo already ordered 5. D/c planning
[2018-10-05] MEDS ORDERED: LOSARTAN POTASSIUM 50 MG TABLET (FP) PO SCH (11:00)
--- NOTE | 2018-10-05 11:26 | ECHO ---
Name: TORRESGUY Exam:Adult Echocardiogram Study Date: 10/05/2018 08:11 AM Age: 53 yrs Reason For Study: Stroke Height: 64 in Weight: 182 lb BSA: 1.9 m2 MMode/2D Measurements & Calculations IVSd: 1.3 cm Ao root diam: 2.5 cm LVIDd: 3.6 cm LA dimension: 2.7 cm LVIDs: 2.6 cm LVPWd: 1.0 cm EDV(Teich): 53.8 ml LVOT diam: 2.0 cm ESV(Teich): 24.1 ml LAV (MOD-bp): 33.0 ml Doppler Measurements & Calculations MV E max [place]: 60.7 cm/sec Ao V2 max: 161.5 cm/sec MV A max [place]: 79.5 cm/sec Ao max P.4 mmHg MV E/A: 0.76 MV dec time: 0.17 sec [place](V,D): 1.8 cm2 LV V1 max P.4 mmHg TR max [place]: 210.1 cm/sec LV V1 max: 92.8 cm/sec TR max P.7 mmHg PA V2 max: 88.2 cm/sec Med Peak E' [place]: 5.8 cm/sec PA max P.1 mmHg Med E/e': 10.6 Lat Peak E' [place]: 6.0 cm/sec Lat E/e': 10.0 Procedure A complete two-dimensional transthoracic echocardiogram was performed (2D, M-mode, Doppler and color flow Doppler). Left Ventricle The left ventricle is normal in size. Left ventricular systolic function is normal. Ejection Fraction = 60- 65%. Grade I diastolic dysfunction, (abnormal relaxation pattern). Ratio E/E'= 10. No regional wall m otion abnormalities noted. Right Ventricle The right ventricle is normal size. The right ventricular systolic function is normal. Atria The left atrial size is normal. LA volume index is 17 ml/m2. Right atrial size is normal. Mitral Valve The mitral valve is normal in structure and function. There is trace mitral regurgitation. Tricuspid Valve The tricuspid valve is normal in structure and function. There is mild tricuspid regurgitation. Right ventricular systolic pressure is normal. Aortic Valve The aortic valve is normal in structure and function. No aortic regurgitation is present. Pulmonic Valve The pulmonic valve is not well visualized. Great Vessels The aortic root is normal size. Pericardium/Pleura There is no pericardial effusion. Interpretation Summary The left ventricle is normal in size. Left ventricular systolic function is normal. No regional wall motion abnormalities noted. Ejection Fraction = 60-65%. Grade I diastolic dysfunction, (abnormal relaxation pattern). Ratio E/E'= 10 The right ventricular systolic function is normal. The left atrial size is normal. Right atrial size is normal. There is trace mitral regurgitation. There is mild tricuspid regurgitation. Right ventricular systolic pressure is normal. There is no pericardial effusion. When compared to study dated 02/13/18, grade 1 diastolic dysfunction is suggested Edis Dockery MD 10/05/2018 11:25 AM
--- NOTE | 2018-10-05 11:28 | CONSULT ---
Admitting History and Physical - Primary Care Physician PCP: Lesli Jaramillo - Admission History of Present Illness: 53 year old female with a history of hypertension presents with left arm and left leg weakness admitted for workup of acute CVA Selected Entries 10/03/18 10/05/18 10/05/18 19:46 02:09 06:00 Supper 100% Temperature 98.0 F 98.2 F 10/05/18 09:00 Supper Temperature 98 F Laboratory Tests 10/03/18 05:30 WBC 5.1 Neurology IMP: Left foot/ankle weakness clearly improving. Doubt a cerebrovascular etiology. Possibly partial left sciatic mononeuropathy (diabetic) History Source: Patient Limitations to Obtaining History: No Limitations - Past Medical History Cardiovascular: Yes: HTN, Hyperlipdemia - Smoking History Smoking history: Former smoker Have you smoked in the past 12 months: No - Alcohol/Substance Use Hx Alcohol Use: No History - Admission Reason For Visit: WEAKNESS - Diagnostics X-ray: Report Reviewed CT Scan: Report Reviewed MRI: Report Reviewed - General Mental Status: Alert and Oriented, Awake and Alert, Able to Follow Commands Attention: Intact Ability to Follow Directions: Excellent Head/Neck Control: WFL - Hearing Hearing: Normal Hearing Aide: No With Patient: No Speech Evaluation - Communication Primary Language: ROMANSH Communication: Yes: Within Normal Limits Oral Expression Ability: Yes: No Impairment - Speech Production Able to Make Needs Known: Yes: WNL Intelligibility: Yes: WNL - Speech Characteristics Voice Loudness: Normal Voice Pitch: Yes: Normal Voice Phonatory-based Quality: Yes: Normal Speech Pattern: Normal Speech Clarity: < 100% Nasal Resonance: Normal Articulation: Yes: Precise - Language/Auditory Comprehension Follows: Yes: 2 Stage Simple Commands Observation: Able to respond to yes/no queries: Yes, Yes/No Confusion: No, Comprehends Conversational Speech: Yes - Language/Verbal Expression Able to Respond to Simple Queries: Yes: WNL Able to Communicate Wants and Needs: Yes: WNL Functional Communication Status: Yes: WNL - Memory/Perception vermin exterminator Memory: Yes: WNL Short Term Memory: Yes: WNL - Swallow Evaluation/Bedside Assessment Current Nutritional Intake: Regular, Thin Liquids Oral Secretions: Yes: WFL Dentition: Yes: Adequate Facial Symmetry at Rest: Symmetrical Facial Symmetry on Retraction: Symmetrical Sensation: Normal Against Resistance Opening: Normal Against Resistance Closing: Normal Pucker Lips: Normal Smile: Normal Lingual Movement: Normal, Symmetric Lingual Speed of Movement: Normal Lingual Movement Strgth Against Opposition: Normal Lingual Movement Characteristics: Normal Velopharyngeal Movement: Normal Laryngeal Elevation: WFL Laryngeal Movement: Able to Palpate Rate of Intake: WFL Bolus Size: WFL Labial Seal: WFL Chewing: WFL Oral Prep Time: WFL A-P Transit: WFL Pocketing: None Timing of Swallow: WFL Coughing/Throat Clear: No Change in Voice: No Recommendations - Speech Evaluation, Impression/Plan Impression: Speech, swallowing, cognition, language intact - Dysphagia Impressions/Plan Swallowing Skills: [facility] Dysphagia Impressions: No Impairment *Silent aspiration: cannot be R/O at bedside - Recommendations Diet Consistency: Regular Medication Administration: Whole with water Liquids: Thin Liquids
--- NOTE | 2018-10-05 16:24 | DS ---
Physical Exam: SUBJECTIVE: Patient seen and examined at bedside no acuet events overnight;' patietn states that she is feeling well she is no longer experiencing any heaviness or numbness in the left upper or loewr extremity she denies any CP/SOB /N/V fevers or chills OBJECTIVE: Vital Signs Period Temp Pulse Resp BP Sys/[place] Pulse Ox Last 24 Hr 98 F-98.6 F 71-87 18-20 112-142/67-94 98-98 PHYSICAL EXAM GENERAL: The patient is awake, alert, and fully oriented, in no acute distress. EYES: PEERLA: EOMI no scleral icterus . LUNGS: CTA B/L; no rales, rhonchi or wheezing HEART: Regular rate and rhythm, S1, S2 without murmur, rub or gallop. ABDOMEN: Soft, nontender, nondistended, normoactive bowel sounds, no guarding, no rebound, no hepatosplenomegaly, no masses. EXTREMITIES: 2+ pulses, warm, well-perfused, no edema. NEUROLOGICAL: Cranial nerves II through XII grossly intact. Normal speech, gait not observed. 5/5 strength in RUE and RLE: 4/5 strength in LUE LLE PSYCH: Normal mood, normal affect. SKIN: Warm, dry, normal turgor, no rashes or lesions noted. LABS HOSPITAL COURSE: Date of Admission:10/02/18 53 year old female with a history of hypertension presents with left arm and left leg weakness that began at 3pm yesterday while she was at work. She reports that at work (at a [employer]), she noticed her left leg began to drag behind her and felt heavy. Reports that she took aspirin yesterday and went to bed. This morning, she woke up and her symptoms persisted. Reports this never happening to her before. Reports that she was on a flight from [place] on Friday , when she felt palpitations that lasted for several minutes. Denies chest pain , SOB, nausea, vomiting, diarrhea, fevers, chills, denies sensory loss. Reports that her L arm symptoms improved but her leg symptoms persist. Denies any problems chewing or swallowing. this had never happened to her before. she denies any family history of stroke or cardiac problems. head CT was negative upon patients arrival and an NIHSS score of 2 was obtained . she was started on lipitor 40 in addition to her ASA 81 and placed on telemetry- she was seen by cardio and an echo was performed which was normal except some garde 1 diastolic dysfunciton was seen mRI was normal- she was discharged home with both neuro and cardio follow up in addition to the lipitor 40 Date of Discharge: 10/05/18 Minutes to complete discharge: 35 Discharge Summary Reason For Visit: WEAKNESS Condition: Improved - Instructions Diet, Activity, Other Instructions: You were admitted to the hospital for left arm and left leg weakness suggestive of possible stroke or mononeuropathy The CAT scan and MRI of your brain were negative for stroke, but it is still possible that you had one Your echocardiogram (ultrasound of the heart) Medical Recommendations: In order to decrease the likelihood of having strokes in the future, please continue to take the following medications: 1. Atorvastatin 40mg one pill daily. This is a cholesterol-reducing medication that helps reduce risk of strokes. 2. Aspirin 81mg one pill daily. This medication has been shown to decrease the risk of strokes. Continue the rest of your home medications as before. You will need to see a neurologist as an outpatient for an EMG (electromyography ) to check your muscles for other causes of weakness, as well as to workup of other nerve conditions Referrals: Please make an appointment with Dr. Mora, the neurologist, within 1 month of discharge. His contact information is provided for you in the discharge packet Please make an appointment with your primary care physician within 1 week of discharge. If you don't have one, please make an appointment with our clinics at [address] [place] [address], [address] [id number] [address] follow up with Dr. Castano within one week We are also referring you to a paint spray tender, Dr. Fontana with whom we would like you to follow up with *if you begin to have numbness/weakness, chest pains, shortness of breath, nausea/vomiting please return to the emergency room immediately Referrals: Terence Mora MD [Staff Physician] - 1 Week Marcie Castano MD [Primary Care Provider] - 1 Week Terry Fontana MD [Staff Physician] - 1 Week Disposition: HOME - Home Medications Comprehensive Discharge Medication List: Ambulatory Orders Diltiazem Cd [Cardizem Cd -] 300 mg PO DAILY 02/12/18 Losartan Potassium 100 mg PO DAILY 02/12/18 Spironolactone 25 mg PO DAILY 02/12/18 Gabapentin [Neurontin -] 100 mg PO BID #30 capsule 02/13/18 Aspirin Coated [Ecotrin -] 81 mg PO DAILY tablet.ec 10/04/18 Atorvastatin Ca [Lipitor] 40 mg PO HS #30 tablet 10/04/18 Metformin HCl ER 500 mg PO DAILY 10/04/18 Problem List - Problems (1) TIA (transient ischemic attack) Code(s): G45.9 - TRANSIENT CEREBRAL ISCHEMIC ATTACK, UNSPECIFIED (2) Weakness Code(s): R53.1 - WEAKNESS This patient is new to me today: Yes Date on this admission: 10/05/18 Emergency Visit: Yes ED Registration Date: 10/02/18 Care time: The patient presented to the Emergency Department on the above date and was hospitalized for further evaluation of their emergent condition. Critical Care patient: No - Discharge Referral Referred to [facility] Med P.C.: No
--- NOTE | 2018-10-05 19:01 | PN ---
Teaching Attending Note Name of Resident: Malaika Flores ATTENDING PHYSICIAN STATEMENT I saw and evaluated the patient. I reviewed the resident's note and discussed the case with the resident. I agree with the resident's findings and plan as documented. SUBJECTIVE: Reports improvement in power LLE. No headache/visual disturbance/ slurring of speech. OBJECTIVE: Afebrile, Hemodynamically Stable. Last Vital Signs Temp Pulse Resp BP Pulse Ox 98 F 86 20 142/90 98 10/05/18 09:00 10/05/18 09:00 10/05/18 09:00 10/05/18 09:00 10/05/18 08:45 HEENT - Atraumatic, Normocephalic. Heart - S1, S2, RRR Lungs-clear to auscultation Abdomen - Soft, non-tender. Bowel Sounds normal. Extremities - mild edema, no calf tenderness. Neuro - AAO x 3. Mild decrease in power LLE. Discharge Medications Medication Instructions Recorded Diltiazem Cd [Cardizem Cd -] 300 mg PO DAILY 02/12/18 Losartan Potassium 100 mg PO DAILY 02/12/18 Spironolactone 25 mg PO DAILY 02/12/18 Gabapentin [Neurontin -] 100 mg PO BID #30 capsule 02/13/18 Aspirin Coated [Ecotrin -] 81 mg PO DAILY tablet.ec 10/04/18 Atorvastatin Ca [Lipitor] 40 mg PO HS #30 tablet 10/04/18 Metformin HCl ER 500 mg PO DAILY 10/04/18 ASSESSMENT AND PLAN: 53 year old female with a history of hypertension presents with left leg weakness admitted for workup of acute CVA. 1. 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 MRI negative for acute intracranial findings Echo - normal EF, Grade I diatolic dysfunction. Carotid Doppler - no hemodynamically significant stenosis. Continue Aspirin, started on Lipitor LFT and Lipid Panel monitoring as out-patient by Neuro/PCP Neuro [id number] up for out-patient EMG 2. DM 2 A1C 6.4 Continue Metformin 3. HTN - Continue Diltiazem, Losartan, Spironolactone Medically and Neurologically Stable for discharge
== END 2018-10-05 14:11 | disposition home or self-care (01) | DRG 74 ==
LOC: JER 14:46 → JERBED 18:48 → J4W 21:29
PROVIDERS: ADMIT Internal Medicine
DX: E11.41 Type 2 diabetes mellitus with diabetic mononeuropathy (principal); R53.1 Weakness; I11.9 Hypertensive heart disease without heart failure; E78.5 Hyperlipidemia, unspecified; M54.32 Sciatica, left side; M19.90 Unspecified osteoarthritis, unspecified site; R27.0 Ataxia, unspecified; R07.89 Other chest pain
CPT/HCPCS: 36415; 70450-TC; 70551-TC; 80048; 80053; 80061; 81003; 82550; 82553; 82607; 82962; 83036; 83721; 83735; 84100; 84443; 84484; 84702; 85025; 85610; 85730; 87086; 93005; 93010; 93306-TC; 93880-TC; 93970-TC; 97116-GP; 97161-GP; 99284-25